=== PATIENT | male | born 1950 ===

== ENCOUNTER 2021-09-15 13:25 | Inpatient (IN) | payer MEDICARE, OTHER ==
[~2021-09-15 13:25] MED LIST: Aspirin Chewable 81 MG TAB ONE; Iopamidol 370 76% 100 ML VIAL ONE; Iopamidol 370 76% 50 ML VIAL FS ONE; Sodium Chloride 0.9% 1,000 ML BAG ONE
[2021-09-15 14:05] LABS: Mean Corpuscular HGB CONC 34.9 g/dL (32.0-36.0); Mean Corpuscular Hemoglobin 31.9 pg (27.0-31.0); Mean Corpuscular Volume 91.4 fL (78.0-98.0); RBC Distribution Width 12.4 % (11.5-14.5); Red Blood Cell (RBC) Count 4.38 mill/uL (4.70-6.10)
[2021-09-15 14:08] LABS: Prothrombin Time 13.1 sec (12.0-14.7)
[2021-09-15 14:09] LABS: PTT 29.6 sec (22.9-36.1)
[2021-09-15 14:15] LABS: ALT (SGPT) 67 U/L (8-55); AST (SGOT) 68 U/L (5-34); Albumin 3.4 g/dL (3.4-4.8); Alkaline Phosphatase 59 U/L (40-110); Anion Gap 20 mmol/L (10-20); BUN (Urea Nitrogen) 23 mg/dL (8.4-25.7); Bilirubin, Total 0.2 mg/dL (0.2-1.2); Calc. Creatinine Clearance 0 mL/min (70-130); Calcium 8.8 mg/dL (7.8-10.44); Carbon Dioxide 16 mmol/L (23-31); Chloride 103 mmol/L (98-107); Globulin 2.6 g/dL (2.4-3.5); Glucose 458 mg/dL (80-115); Potassium 4.2 mmol/L (3.5-5.1); Sodium 135 mmol/L (136-145)
[2021-09-15 14:21] LABS: Eosinophils 10 % (0-10); Lymphocytes 31 % (21-51); Monocytes 8 % (0-10); Neutrophil 46 % (42-75); Reactive Lymphocytes 5 % (0-10)
[2021-09-15 14:22] LABS: RBC Morphology Normal
[2021-09-15 14:45] LABS: SARS-CoV-2 NAA Rapid Test Not Detected (NotDetected)
[2021-09-15] MEDS ORDERED: Nitroglycerin 0.4 MG TAB (25 Tab Bottle) SL PRN ×2 (14:59→15:03)
[2021-09-15] MEDS ORDERED: Heparin 10,000 UNITS/ 10 ML VIAL SLOW IVP SCH (15:00)
[2021-09-15] MEDS ORDERED: Aspirin Chewable 81 MG TAB PO SCH (15:00)
[2021-09-15] MEDS ORDERED: Heparin 25,000 units/D5W 500 ML IVPB SCH (15:00)
[2021-09-15] MEDS ORDERED: Sodium Chloride 0.9% 200 ML IV PRN (15:03)
[2021-09-15] MEDS ORDERED: Acetaminophen/Codeine 30-300mg Tablet PO PRN ×2 (15:03)
[2021-09-15 15:24] LABS: Platelet Count 193 thou/uL (130-400)
[2021-09-15 15:26] LABS: MDiff Complete? YES
[2021-09-15 16:21] LABS: Troponin I 0.325 ng/mL (< 0.028)
[2021-09-15] MEDS: Carvedilol 3.125 MG TAB PO SCH (16:59)
[2021-09-15] MEDS ORDERED: Dextrose 50% Abboject 50 ML SYRINGE SLOW IVP PRN (17:01)
[2021-09-15] MEDS ORDERED: HumaLOG 300 UNITS/3 ML VIAL SC PRN ×2 (17:01)
[2021-09-15] MEDS ORDERED: Dextrose 5% in Water 1,000 ML IV PRN (17:01)
[2021-09-15] MEDS ORDERED: Morphine 2 MG/ML VIAL SLOW IVP PRN (17:34)
[2021-09-15 17:58] LABS: Hemoglobin A1c 8.5 % (4.0-6.0); Lactic Acid 1.1 mmol/L (0.5-2.2)
[2021-09-15] MEDS ORDERED: Communication Order-Pharmacy FS SCH (18:43)
[2021-09-15 19:14] LABS: Troponin I 1.572 ng/mL (< 0.028)
[2021-09-15] MEDS ORDERED: Ondansetron PF 4 MG/2 ML Vial IVP PRN (19:39)
[2021-09-15] MEDS ORDERED: Lactated Ringer's 1,000 ML IV SCH (19:45)
[2021-09-15] MEDS ORDERED: Metoprolol Tartrate 25 MG TAB PO SCH (21:00)
[2021-09-16] MEDS ORDERED: Morphine 4 MG/ML VIAL SLOW IVP PRN ×3 (01:35→11:52)
[2021-09-16] MEDS ORDERED: Norepinephrine 8 MG/0.9% NS 250 ML IVPB PRN ×2 (01:35→11:52)
[2021-09-16] MEDS ORDERED: Sodium Chloride 0.9% 250 ML IVPB SCH (02:15)
[2021-09-16 04:40] LABS: Anion Gap 15 mmol/L (10-20); BUN (Urea Nitrogen) 28 mg/dL (8.4-25.7); Calc. Creatinine Clearance 79 mL/min (70-130); Calcium 8.5 mg/dL (7.8-10.44); Carbon Dioxide 20 mmol/L (23-31); Cardiac Risk 2.6 (Less than 4.5); Chloride 105 mmol/L (98-107); Cholesterol 118 mg/dl (< 200 Desired); Glucose 297 mg/dL (80-115); HDL Cholesterol 46 mg/dL (>60 Neg Risk); LDL Cholesterol, Calculated 46 mg/dL; Magnesium 1.5 mg/dL (1.6-2.6); Potassium 4.5 mmol/L (3.5-5.1); Sodium 135 mmol/L (136-145); Triglycerides 128 mg/dL (Less than 150)
[2021-09-16 04:47] LABS: Troponin I 1.597 ng/mL (< 0.028)
[2021-09-16] MEDS: Carvedilol 3.125 MG TAB PO SCH (05:58)
[2021-09-16] MEDS ORDERED: CEFAZOLIN 2 GM, Admixture Fee 1 EACH in Sodium Chloride 0.9% 100 ML IVPB SCH (07:00)
[2021-09-16] MEDS ORDERED: Dexamethasone 4 mg/ml Vial ONE (07:20)
[2021-09-16] MEDS ORDERED: Bupivacaine PF 0.5% 30 ML VIAL ONE (07:20)
[2021-09-16] MEDS ORDERED: Albumin 5% 500 ML ONE (07:20)
[2021-09-16] MEDS ORDERED: EPINEPHrine 1 MG/ML AMP ONE (07:20)
[2021-09-16] MEDS ORDERED: Midazolam HCl 5 mg/5 ml Vial ONE (07:57)
[2021-09-16] MEDS ORDERED: Dexmedetomidine 200 MCG/2 ML VIAL ONE (07:57)
[2021-09-16] MEDS ORDERED: Fentanyl 250 MCG/5 ML VIAL ONE (07:57)
[2021-09-16] MEDS ORDERED: Cardioplegic Soln 1,000 ML BAG ONE (08:19)
[2021-09-16] MEDS ORDERED: Norepinephrine 4 MG/4 ML VIAL ONE (08:19)
[2021-09-16] MEDS ORDERED: Dexamethasone 20 MG/5 ML VIAL ONE (08:19)
[2021-09-16] MEDS ORDERED: Mannitol 12.5 GM/50 ML ONE (08:19)
[2021-09-16] MEDS ORDERED: Heparin 5,000 UNITS/ML VIAL ONE (08:19)
[2021-09-16] MEDS ORDERED: Calcium Chloride 1 GM/10 ML Abboject SYRINGE ONE (08:19)
[2021-09-16] MEDS ORDERED: PROPOFOL 200 MG/20 ML VIAL ONE (08:19)
[2021-09-16] MEDS ORDERED: Lidocaine 2% PF 100 mg/5 ml Syringe ONE (08:19)
[2021-09-16] MEDS ORDERED: Protamine Sulfate 250 MG/25 ML VIAL ONE (08:19)
[2021-09-16] MEDS ORDERED: Ondansetron PF 4 MG/2 ML Vial ONE (08:19)
[2021-09-16] MEDS ORDERED: Heparin 30,000 units/30 ml VIAL ONE (08:19)
[2021-09-16] MEDS ORDERED: Magnesium Sulfate 1 GM/2 ML VIAL ONE (08:19)
[2021-09-16] MEDS ORDERED: Aminocaproic Acid 5 GM/20 ML VIAL ONE (08:19)
[2021-09-16] MEDS ORDERED: Vecuronium 10 MG VIAL ONE (08:19)
[2021-09-16] MEDS ORDERED: Thrombin 5000 UNITS/5 ML VIAL ONE (08:19)
[2021-09-16] MEDS ORDERED: Potassium Chloride 60 MEQ/30 ML VIAL ONE (08:19)
[2021-09-16] MEDS ORDERED: Sodium Bicarb 50 MEQ/50 ML Abboject 8.4% SYRINGE ONE (08:19)
[2021-09-16] MEDS ORDERED: Lidocaine 1% PF 5 ML VIAL ONE (08:19)
[2021-09-16] MEDS ORDERED: Nitroglycerin 50 MG/250 ML BOT ONE (08:19)
[2021-09-16] MEDS ORDERED: Glycopyrrolate 0.2 MG/ML 5 ML SYRINGE ONE (08:19)
[2021-09-16] MEDS ORDERED: Papaverine 60 MG/2 ML VIAL ONE (08:19)
[2021-09-16] MEDS ORDERED: Lantus 1000 UNITS/10 ML VIAL SC SCH (09:00)
[2021-09-16] MEDS ORDERED: Insulin Regular 300 UNITS/3 ML VIAL ONE ×2 (09:00→09:01)
[2021-09-16] MEDS ORDERED: Milrinone 10 MG/10 ML VIAL ONE (09:00)
[2021-09-16] MEDS ORDERED: PHENYLEPHRINE-NS 100 MCG/ML 10 ML SYRINGE ONE ×2 (10:22→10:42)
[2021-09-16 10:49] LABS: Actual Bicarbonate (HCO3a) 22.2 mEq/L (22-28); Actual Bicarbonate (HCO3a) 25.6 mEq/L (22-28); Base Excess (BEa) -0.8 mEq/L (-2.0 to +3.0); Base Excess (BEa) -4.7 mEq/L (-2.0 to +3.0); CO2 Tension 49.2 mmHg (35.0-45.0); CO2 Tension 52.7 mmHg (35.0-45.0); Calcium, Ionized (arterial) 0.87 mmol/L (1.12-1.30); Calcium, Ionized (arterial) 1.06 mmol/L (1.12-1.30); Carboxyhemoglobin (COHb) 0.3 gm% (0.0-3.0); Carboxyhemoglobin (COHb) 0.9 gm% (0.0-3.0); Hemoglobin (Hb) 10.4 g/dL (14.0-18.0); Hemoglobin (Hb) 7.7 g/dL (14.0-18.0); O2 Tension (PaO2), arterial 249.5 mmHg (> 80.0); O2 Tension (PaO2), arterial 286.4 mmHg (> 80.0); Potassium - ABG Lab 3.52 mmol/L (3.70-5.30); Potassium - ABG Lab 3.74 mmol/L (3.70-5.30); Puncture Site Arterial Line; pH, Arterial 7.27 (7.35-7.45); pH, Arterial 7.31 (7.35-7.45)
[2021-09-16 10:51] LABS: Puncture Site Arterial Line
[2021-09-16] MEDS ORDERED: Nitroglycerin 50 MG/250 ML BOT 250 ML IVPB PRN (11:52)
[2021-09-16] MEDS ORDERED: Promethazine HCl 25 MG/ML VIAL IM PRN (11:52)
[2021-09-16] MEDS ORDERED: Post-Op Insulin Drip Protocol IVPB ONE (11:52)
[2021-09-16] MEDS ORDERED: hydrALAZINE 20 MG/ML VIAL SLOW IVP PRN (11:52)
[2021-09-16] MEDS ORDERED: Bisacodyl 5 MG TAB PO PRN (11:52)
[2021-09-16] MEDS ORDERED: Hetastarch 6% 500 ML 500 ML IVPB PRN (11:52)
[2021-09-16] MEDS ORDERED: Fentanyl 100 MCG/2 ML VIAL SLOW IVP PRN ×2 (11:52)
[2021-09-16] MEDS ORDERED: Mag-Al 1200 mg/1200 mg/30 ML UDCUP PO PRN (11:52)
[2021-09-16] MEDS ORDERED: Bisacodyl 10 MG SUPP PR PRN (11:52)
[2021-09-16] MEDS ORDERED: Magnesium 2 GM/50 ML 2 GM in Premix Bag 1 BAG IVPB SCH (12:00)
[2021-09-16] MEDS ORDERED: Dextrose 50% Abboject 50 ML SYRINGE SLOW IVP PRN (12:15)
[2021-09-16] MEDS ORDERED: HUMULIN R 100 UNITS in Sodium Chloride 0.9% 100 ML IVPB SCH (12:15)
[2021-09-16] MEDS ORDERED: Dextrose 5% in Water 1,000 ML IV PRN (12:15)
[2021-09-16] MEDS ORDERED: Lantus 1000 UNITS/10 ML VIAL SC PRN (12:15)
[2021-09-16] MEDS: Insulin Regular 300 UNITS/3 ML VIAL SC PRN ×3 (12:22→20:02)
[2021-09-16] MEDS: Ketorolac Tromethamine 30 MG/ML VIAL IVP SCH ×2 (12:22→17:08)
[2021-09-16 12:25] LABS: #Basophils 0.1 thou/uL (0.0-0.2); #Eosinphils 0.3 thou/uL (0.0-0.7); #Lymphocytes 1.9 thou/uL (1.20-3.40); #Monocytes 2.4 thou/uL (0.11-0.59); #Neutrophils 14.5 thou/uL (1.40-6.50); %Basophils 0.3 % (0.0-1.0); %Eosinophils 1.5 % (0.0-10.0); %Lymphocytes 9.8 % (21.0-51.0); %Monocytes 12.7 % (0.0-10.0); %Neutrophils 75.7 % (42.0-75.0); Hemoglobin 9.9 g/dL (14.0-18.0); Mean Corpuscular HGB CONC 33.4 g/dL (32.0-36.0); Mean Corpuscular Hemoglobin 30.4 pg (27.0-31.0); Mean Corpuscular Volume 90.9 fL (78.0-98.0); Mean Platelet Volume 10.5 fL (7.4-10.4); Platelet Count 84 thou/uL (130-400); RBC Distribution Width 12.4 % (11.5-14.5); Red Blood Cell (RBC) Count 3.26 mill/uL (4.70-6.10); White Blood Cell (WBC) Count 19.1 thou/uL (4.8-10.8)
[2021-09-16 12:26] LABS: Actual Bicarbonate (HCO3a) 20.3 mEq/L (22-28); Base Excess (BEa) -5.5 mEq/L (-2.0 to +3.0); CO2 Tension 40.7 mmHg (35.0-45.0); Hemoglobin (Hb) 10.2 g/dL (14.0-18.0); O2 Tension (PaO2), arterial 70.9 mmHg (> 80.0); Potassium - ABG Lab 3.73 mmol/L (3.70-5.30); pH, Arterial 7.32 (7.35-7.45)
[2021-09-16 12:37] LABS: INR-International Normal Ratio 1.3; PTT 38.9 sec (22.9-36.1)
[2021-09-16 12:38] LABS: Puncture Site Arterial Line
[2021-09-16] MEDS: D5 1/2 NS w/20 mEq KCL 1,000 ML IV SCH (12:40)
[2021-09-16 12:46] LABS: ALV-art Gradient 163.425 mmHg (0-20)
[2021-09-16 12:50] LABS: Anion Gap 15 mmol/L (10-20); BUN (Urea Nitrogen) 24 mg/dL (8.4-25.7); Calc. Creatinine Clearance 84 mL/min (70-130); Calcium 7.8 mg/dL (7.8-10.44); Carbon Dioxide 19 mmol/L (23-31); Chloride 110 mmol/L (98-107); Glucose 135 mg/dL (80-115); Potassium 3.8 mmol/L (3.5-5.1); Sodium 140 mmol/L (136-145)
[2021-09-16] MEDS: Potassium Chloride 20 MEQ/100 ML PREMIX BAG IVPB PRN (12:57)
[2021-09-16] MEDS: CEFAZOLIN 2 GM, IV Admixture Fee-Chemo 1 UNITS in Sodium Chloride 0.9% 100 ML IVPB SCH ×2 (14:00→22:35)
[2021-09-16] MEDS ORDERED: Sodium Chloride 0.9% 500 ML IV SCH (17:00)
[2021-09-16] MEDS ORDERED: Sodium Chloride 0.9% 500 ML IV PRN (17:00)
[2021-09-16 18:03] LABS: Hemoglobin 8.1 g/dL (14.0-18.0)
[2021-09-16 18:16] LABS: Potassium 4.3 mmol/L (3.5-5.1)
[2021-09-16] MEDS ORDERED: Amiodarone 150 MG, Admixture Fee 1 EACH in Dextrose 5% in Water 100 ML IVPB SCH (18:30)
[2021-09-16] MEDS: Amiodarone 450 MG, Admixture Fee 1 EACH in Dextrose 5% in Water 250 ML IVPB SCH (18:38)
[2021-09-16] MEDS: Famotidine/PF 20 mg/2ml Vial SLOW IVP SCH (20:01)
[2021-09-16] MEDS: Acetaminophen 325 MG TAB PO PRN (20:06)
[2021-09-16] MEDS ORDERED: Sterile Water 10 ML ONE (20:17)
[2021-09-17] MEDS: Ketorolac Tromethamine 30 MG/ML VIAL IVP SCH ×4 (00:04→17:08)
[2021-09-17] MEDS: Insulin Regular 300 UNITS/3 ML VIAL SC PRN ×5 (00:05→16:00)
[2021-09-17] MEDS: Amiodarone 450 MG, Admixture Fee 1 EACH in Dextrose 5% in Water 250 ML IVPB SCH ×2 (03:38→18:35)
[2021-09-17 04:36] LABS: Anion Gap 11 mmol/L (10-20); BUN (Urea Nitrogen) 26 mg/dL (8.4-25.7); Calc. Creatinine Clearance 71 mL/min (70-130); Carbon Dioxide 21 mmol/L (23-31); Chloride 111 mmol/L (98-107); Glucose 234 mg/dL (80-115); Potassium 4.4 mmol/L (3.5-5.1); Sodium 139 mmol/L (136-145)
[2021-09-17 05:28] LABS: Band 17 % (5-11); Lymphocytes 24 % (21-51); MDiff Complete? YES; Mean Corpuscular HGB CONC 34.6 g/dL (32.0-36.0); Mean Corpuscular Hemoglobin 31.1 pg (27.0-31.0); Mean Corpuscular Volume 89.7 fL (78.0-98.0); Mean Platelet Volume 10.9 fL (7.4-10.4); Monocytes 2 % (0-10); Neutrophil 57 % (42-75); Platelet Count 55 thou/uL (130-400); Platelet Morphology Comment Appears Decreased; RBC Distribution Width 12.7 % (11.5-14.5); Red Blood Cell (RBC) Count 2.56 mill/uL (4.70-6.10); White Blood Cell (WBC) Count 10.7 thou/uL (4.8-10.8)
[2021-09-17] MEDS: CEFAZOLIN 2 GM, IV Admixture Fee-Chemo 1 UNITS in Sodium Chloride 0.9% 100 ML IVPB SCH (05:48)
[2021-09-17] MEDS ORDERED: Furosemide 40 MG/4 ML VIAL SLOW IVP SCH (06:45)
[2021-09-17] MEDS: Aspirin 325 MG TAB PO SCH (08:00)
[2021-09-17] MEDS: Famotidine/PF 20 mg/2ml Vial SLOW IVP SCH ×2 (08:00→20:39)
[2021-09-17] MEDS: Magnesium 2 GM/50 ML 2 GM in Premix Bag 1 BAG IVPB SCH (08:01)
[2021-09-17] MEDS ORDERED: Lantus 1000 UNITS/10 ML VIAL SC SCH (09:15)
[2021-09-17] MEDS ORDERED: Digoxin 0.5 MG/2 ML AMP SLOW IVP SCH (09:45)
[2021-09-17] MEDS: HYDROcodone/Acetaminophen 5/325 mg Tablet PO PRN ×3 (10:02→20:39)
[2021-09-17] MEDS: HumaLOG 300 UNITS/3 ML VIAL SC SCH ×2 (12:28→17:14)
[2021-09-17] MEDS: D5 1/2 NS w/20 mEq KCL 1,000 ML IV SCH (12:28)
[2021-09-18] MEDS: Ketorolac Tromethamine 30 MG/ML VIAL IVP SCH ×5 (00:20→23:33)
[2021-09-18 04:32] LABS: Anion Gap 9 mmol/L (10-20); BUN (Urea Nitrogen) 27 mg/dL (8.4-25.7); Calc. Creatinine Clearance 81 mL/min (70-130); Calcium 6.9 mg/dL (7.8-10.44); Carbon Dioxide 24 mmol/L (23-31); Chloride 110 mmol/L (98-107); Glucose 144 mg/dL (80-115); Potassium 3.8 mmol/L (3.5-5.1); Sodium 139 mmol/L (136-145)
[2021-09-18] MEDS: Potassium Chloride 20 MEQ/100 ML PREMIX BAG IVPB PRN (04:46)
[2021-09-18 05:03] LABS: Hemoglobin 9.1 g/dL (14.0-18.0); Mean Corpuscular HGB CONC 33.8 g/dL (32.0-36.0); Mean Corpuscular Hemoglobin 30.7 pg (27.0-31.0); Mean Corpuscular Volume 90.7 fL (78.0-98.0); RBC Distribution Width 14.1 % (11.5-14.5); Red Blood Cell (RBC) Count 2.96 mill/uL (4.70-6.10); White Blood Cell (WBC) Count 7.4 thou/uL (4.8-10.8)
[2021-09-18 06:04] LABS: #Eosinphils 0.3 thou/uL (0.0-0.7); #Lymphocytes 1.6 thou/uL (1.20-3.40); #Monocytes 1.1 thou/uL (0.11-0.59); #Neutrophils 4.4 thou/uL (1.40-6.50); %Basophils 0.3 % (0.0-1.0); %Eosinophils 4.4 % (0.0-10.0); %Lymphocytes 21.1 % (21.0-51.0); %Monocytes 14.5 % (0.0-10.0); %Neutrophils 59.7 % (42.0-75.0); MDiff Complete? YES; Mean Platelet Volume 8.3 fL (7.4-10.4); Platelet Clumps SLIGHT; Platelet Count 78 thou/uL (130-400); Platelet Morphology Comment Appears Decreased
[2021-09-18] MEDS: Magnesium 2 GM/50 ML 2 GM in Premix Bag 1 BAG IVPB SCH (07:43)
[2021-09-18] MEDS: Famotidine/PF 20 mg/2ml Vial SLOW IVP SCH (07:45)
[2021-09-18] MEDS: HumaLOG 300 UNITS/3 ML VIAL SC SCH ×3 (07:46→16:13)
[2021-09-18] MEDS: HYDROcodone/Acetaminophen 5/325 mg Tablet PO PRN (07:51)
[2021-09-18] MEDS: Aspirin 325 MG TAB PO SCH (07:56)
[2021-09-18] MEDS ORDERED: Mineral Oil ENEMA PR PRN (08:10)
[2021-09-18] MEDS ORDERED: Milk Of Magnesia 30 ML UDCUP PO PRN (08:10)
[2021-09-18] MEDS ORDERED: Nitroglycerin 0.4 MG TAB (25 Tab Bottle) SL PRN (08:10)
[2021-09-18] MEDS ORDERED: Bisacodyl 10 MG SUPP PR PRN (08:10)
[2021-09-18] MEDS ORDERED: traMADol HCl 50 MG TAB PO PRN ×2 (08:10)
[2021-09-18] MEDS ORDERED: Potassium Chloride 10 MEQ TAB PO SCH (08:30)
[2021-09-18] MEDS ORDERED: Lantus 1000 UNITS/10 ML VIAL SC SCH (09:00)
[2021-09-18] MEDS: Furosemide 40 MG TAB PO SCH ×2 (10:02→11:34)
[2021-09-18] MEDS: Amiodarone 450 MG, Admixture Fee 1 EACH in Dextrose 5% in Water 250 ML IVPB SCH (10:06)
[2021-09-18] MEDS: Insulin Regular 300 UNITS/3 ML VIAL SC PRN ×2 (11:35→20:56)
[2021-09-18] MEDS: Amiodarone 200 MG TAB PO SCH ×2 (16:13→20:55)
[2021-09-19] MEDS: Ketorolac Tromethamine 30 MG/ML VIAL IVP SCH ×2 (05:30→11:30)
[2021-09-19] MEDS: Insulin Regular 300 UNITS/3 ML VIAL SC PRN ×3 (05:35→17:13)
[2021-09-19] MEDS ORDERED: Potassium Chloride 10 MEQ TAB PO SCH (08:00)
[2021-09-19] MEDS ORDERED: Lantus 1000 UNITS/10 ML VIAL SC SCH (09:00)
[2021-09-19] MEDS: HumaLOG 300 UNITS/3 ML VIAL SC SCH ×3 (09:04→17:12)
[2021-09-19] MEDS: Potassium Chloride 10 MEQ TAB PO SCH ×2 (09:05→17:13)
[2021-09-19] MEDS: Carvedilol 3.125 MG TAB PO SCH ×2 (09:05→17:13)
[2021-09-19] MEDS: Aspirin 325 MG TAB PO SCH (09:05)
[2021-09-19] MEDS: Amiodarone 200 MG TAB PO SCH ×3 (09:05→21:14)
[2021-09-19] MEDS: Furosemide 40 MG TAB PO SCH ×2 (09:09→14:49)
[2021-09-19] MEDS ORDERED: traMADol HCl 50 MG TAB PO PRN ×2 (17:16)
[2021-09-20] MEDS ORDERED: Metolazone 5 MG TAB PO SCH (06:00)
[2021-09-20 07:47] LABS: Anion Gap 12 mmol/L (10-20); BUN (Urea Nitrogen) 30 mg/dL (8.4-25.7); Calc. Creatinine Clearance 72 mL/min (70-130); Calcium 7.2 mg/dL (7.8-10.44); Carbon Dioxide 21 mmol/L (23-31); Chloride 107 mmol/L (98-107); Glucose 150 mg/dL (80-115); Potassium 4.4 mmol/L (3.5-5.1); Sodium 136 mmol/L (136-145)
[2021-09-20] MEDS: Lisinopril 5 MG TAB PO SCH (08:40)
[2021-09-20] MEDS: Potassium Chloride 10 MEQ TAB PO SCH ×2 (08:40→17:17)
[2021-09-20] MEDS: Amiodarone 200 MG TAB PO SCH ×3 (08:40→21:16)
[2021-09-20] MEDS: Carvedilol 3.125 MG TAB PO SCH ×2 (08:41→17:17)
[2021-09-20] MEDS: Aspirin 325 MG TAB PO SCH (08:42)
[2021-09-20] MEDS: Lantus 1000 UNITS/10 ML VIAL SC SCH (08:42)
[2021-09-20] MEDS: Furosemide 40 MG TAB PO SCH ×2 (08:42→13:43)
[2021-09-20] MEDS: HumaLOG 300 UNITS/3 ML VIAL SC SCH ×3 (08:43→17:18)
[2021-09-20] MEDS: Insulin Regular 300 UNITS/3 ML VIAL SC PRN ×2 (12:06→17:18)
[2021-09-20] MEDS: traMADol HCl 50 MG TAB PO PRN (15:08)
[2021-09-21] MEDS: Acetaminophen 325 MG TAB PO PRN (04:38)
[2021-09-21] MEDS ORDERED: Metolazone 5 MG TAB PO SCH (06:00)
[2021-09-21] MEDS: Furosemide 40 MG TAB PO SCH ×2 (08:13→17:34)
[2021-09-21] MEDS: Aspirin 325 MG TAB PO SCH (08:14)
[2021-09-21] MEDS: Potassium Chloride 10 MEQ TAB PO SCH ×2 (08:14→16:48)
[2021-09-21] MEDS: Lisinopril 5 MG TAB PO SCH (08:14)
[2021-09-21] MEDS: HumaLOG 300 UNITS/3 ML VIAL SC SCH ×3 (08:15→16:49)
[2021-09-21] MEDS: Amiodarone 200 MG TAB PO SCH ×3 (08:15→20:47)
[2021-09-21] MEDS: Carvedilol 3.125 MG TAB PO SCH ×2 (08:15→18:12)
[2021-09-21] MEDS: Lantus 1000 UNITS/10 ML VIAL SC SCH (08:16)
[2021-09-21 10:35] LABS: Anion Gap 12 mmol/L (10-20); BUN (Urea Nitrogen) 28 mg/dL (8.4-25.7); Calc. Creatinine Clearance 62 mL/min (70-130); Calcium 7.3 mg/dL (7.8-10.44); Carbon Dioxide 23 mmol/L (23-31); Chloride 103 mmol/L (98-107); Glucose 179 mg/dL (80-115); Potassium 3.8 mmol/L (3.5-5.1); Sodium 134 mmol/L (136-145)
[2021-09-21] MEDS: traMADol HCl 50 MG TAB PO PRN (12:13)
[2021-09-21] MEDS: Insulin Regular 300 UNITS/3 ML VIAL SC PRN (20:47)
[2021-09-22] MEDS: Acetaminophen 325 MG TAB PO PRN ×2 (03:40→18:38)
[2021-09-22] MEDS ORDERED: APALUTAMIDE 60 MG PO SCH (09:00)
[2021-09-22] MEDS: Sodium Chloride 0.65% Nasal 44 ML BOT EA NARE SCH ×3 (09:13→21:48)
[2021-09-22] MEDS: guaiFENesin/DM ER PO SCH ×2 (09:14→21:46)
[2021-09-22] MEDS: Furosemide 40 MG TAB PO SCH ×2 (09:14→14:27)
[2021-09-22] MEDS: Amiodarone 200 MG TAB PO SCH ×3 (09:14→21:46)
[2021-09-22] MEDS: Lisinopril 5 MG TAB PO SCH (09:14)
[2021-09-22] MEDS: Carvedilol 3.125 MG TAB PO SCH ×2 (09:14→16:55)
[2021-09-22] MEDS: Potassium Chloride 10 MEQ TAB PO SCH ×2 (09:14→17:28)
[2021-09-22] MEDS: Aspirin 325 MG TAB PO SCH (09:14)
[2021-09-22] MEDS: Lantus 1000 UNITS/10 ML VIAL SC SCH (09:15)
[2021-09-22] MEDS: HumaLOG 300 UNITS/3 ML VIAL SC SCH ×3 (09:16→17:28)
[2021-09-22] MEDS: Apalutamide [Erleada] 60 MG Tablet PO SCH (09:17)
[2021-09-22] MEDS: Insulin Regular 300 UNITS/3 ML VIAL SC PRN (21:46)
[2021-09-23] MEDS: Guaifenesin DM 100-10/5 ML UDCUP PO PRN (00:08)
[2021-09-23] MEDS: traMADol HCl 50 MG TAB PO PRN ×2 (00:26→20:52)
[2021-09-23 05:41] LABS: Anion Gap 13 mmol/L (10-20); BUN (Urea Nitrogen) 19 mg/dL (8.4-25.7); Calc. Creatinine Clearance 72 mL/min (70-130); Calcium 7.2 mg/dL (7.8-10.44); Carbon Dioxide 23 mmol/L (23-31); Chloride 102 mmol/L (98-107); Glucose 109 mg/dL (80-115); Potassium 4.1 mmol/L (3.5-5.1); Sodium 134 mmol/L (136-145)
[2021-09-23] MEDS ORDERED: Dextrose 5% in Water 1,000 ML IV PRN (06:59)
[2021-09-23] MEDS ORDERED: Lisinopril 5 MG TAB PO SCH (08:27)
[2021-09-23] MEDS: guaiFENesin/DM ER PO SCH ×2 (09:19→20:54)
[2021-09-23] MEDS: Apalutamide [Erleada] 60 MG Tablet PO SCH (09:19)
[2021-09-23] MEDS: Potassium Chloride 10 MEQ TAB PO SCH ×2 (09:19→14:58)
[2021-09-23] MEDS: Aspirin 325 MG TAB PO SCH (09:19)
[2021-09-23] MEDS: Amiodarone 200 MG TAB PO SCH ×3 (09:20→22:25)
[2021-09-23] MEDS: Carvedilol 3.125 MG TAB PO SCH ×2 (09:20→14:57)
[2021-09-23] MEDS: Lisinopril 2.5 MG TAB PO SCH (09:20)
[2021-09-23] MEDS: Furosemide 40 MG TAB PO SCH ×2 (09:20→14:57)
[2021-09-23] MEDS: Lantus 1000 UNITS/10 ML VIAL SC SCH (09:20)
[2021-09-23] MEDS: Sodium Chloride 0.65% Nasal 44 ML BOT EA NARE SCH ×3 (09:21→22:25)
[2021-09-23] MEDS ORDERED: Carvedilol 3.125 MG TAB PO SCH ×2 (09:22→09:45)
[2021-09-23] MEDS: Acetaminophen 325 MG TAB PO PRN (09:26)
[2021-09-23 10:46] LABS: ALT (SGPT) 17 U/L (8-55); AST (SGOT) 22 U/L (5-34); Albumin 3.1 g/dL (3.4-4.8); Alkaline Phosphatase 51 U/L (40-110); Bilirubin, Direct 0.3 mg/dL (0.1-0.3); Bilirubin, Total 0.5 mg/dL (0.2-1.2); Protein, Total 5.6 g/dL (5.8-8.1)
[2021-09-23] MEDS: HumaLOG 300 UNITS/3 ML VIAL SC PRN ×2 (11:41→17:25)
[2021-09-23] MEDS ORDERED: Sodium Chloride 0.9% 500 ML IV SCH (12:45)
[2021-09-23 21:03] LABS: SARS-CoV-2 PCR by NAA DETECTED (NotDetected)
[2021-09-24] MEDS: Amiodarone 200 MG TAB PO SCH ×3 (08:36→20:58)
[2021-09-24] MEDS: Lisinopril 2.5 MG TAB PO SCH (08:36)
[2021-09-24] MEDS: Potassium Chloride 10 MEQ TAB PO SCH ×2 (08:36→17:03)
[2021-09-24] MEDS: Aspirin 325 MG TAB PO SCH (08:37)
[2021-09-24] MEDS: guaiFENesin/DM ER PO SCH ×2 (08:37→20:58)
[2021-09-24] MEDS: Carvedilol 3.125 MG TAB PO SCH ×2 (08:37→17:02)
[2021-09-24] MEDS: Furosemide 40 MG TAB PO SCH ×2 (08:37→14:27)
[2021-09-24] MEDS: Lantus 1000 UNITS/10 ML VIAL SC SCH (08:38)
[2021-09-24] MEDS: Apalutamide [Erleada] 60 MG Tablet PO SCH (08:41)
[2021-09-24] MEDS: Sodium Chloride 0.65% Nasal 44 ML BOT EA NARE SCH ×4 (09:00→21:23)
[2021-09-25] MEDS: Potassium Chloride 10 MEQ TAB PO SCH ×2 (08:13→17:43)
[2021-09-25] MEDS: Carvedilol 3.125 MG TAB PO SCH ×2 (08:13→17:42)
[2021-09-25] MEDS: Furosemide 40 MG TAB PO SCH (08:14)
[2021-09-25] MEDS: Aspirin 325 MG TAB PO SCH (08:14)
[2021-09-25] MEDS: Lisinopril 2.5 MG TAB PO SCH (08:14)
[2021-09-25] MEDS: Amiodarone 200 MG TAB PO SCH ×2 (08:14→16:00)
[2021-09-25] MEDS: Lantus 1000 UNITS/10 ML VIAL SC SCH (08:23)
[2021-09-25] MEDS: Apalutamide [Erleada] 60 MG Tablet PO SCH (08:23)
[2021-09-25] MEDS: guaiFENesin/DM ER PO SCH ×2 (08:23→21:02)
[2021-09-25] MEDS: Sodium Chloride 0.65% Nasal 44 ML BOT EA NARE SCH ×3 (09:28→21:08)
[2021-09-25] MEDS: Sodium Chloride 0.9% 1,000 ML IV SCH ×2 (12:45→23:00)
[2021-09-25] MEDS ORDERED: Digoxin 0.5 MG/2 ML AMP SLOW IVP SCH ×2 (15:30→21:00)
[2021-09-25] MEDS ORDERED: Sodium Chloride 0.9% 250 ML 250 ML IVPB SCH (16:45)
[2021-09-25] MEDS ORDERED: Sodium Chloride 0.9% 250 ML IV SCH (21:00)
[2021-09-25] MEDS: Acetaminophen 325 MG TAB PO PRN (21:03)
[2021-09-25 22:08] LABS: Anion Gap 16 mmol/L (10-20); BUN (Urea Nitrogen) 18 mg/dL (8.4-25.7); Calc. Creatinine Clearance 66 mL/min (70-130); Calcium 7.1 mg/dL (7.8-10.44); Carbon Dioxide 18 mmol/L (23-31); Chloride 103 mmol/L (98-107); Glucose 143 mg/dL (80-115); Potassium 4.3 mmol/L (3.5-5.1); Sodium 133 mmol/L (136-145)
[2021-09-26] MEDS: traMADol HCl 50 MG TAB PO PRN ×2 (04:28→18:36)
[2021-09-26 07:51] LABS: Lymphocytes 7 % (21-51)
[2021-09-26 07:53] LABS: Band 4 % (5-11); Hemoglobin 10.9 g/dL (14.0-18.0); MDiff Complete? YES; Mean Corpuscular HGB CONC 34.1 g/dL (32.0-36.0); Mean Corpuscular Hemoglobin 30.3 pg (27.0-31.0); Mean Platelet Volume 11.6 fL (7.4-10.4); Monocytes 4 % (0-10); Neutrophil 85 % (42-75); Platelet Clumps MARKED; Platelet Morphology Comment PLT clumps seen-ADEQ; Polychromasia SLIGHT = 2-3 cells (100X) (0-2/hpf); RBC Distribution Width 13.7 % (11.5-14.5); Red Blood Cell (RBC) Count 3.58 mill/uL (4.70-6.10); White Blood Cell (WBC) Count 6.6 thou/uL (4.8-10.8)
[2021-09-26] MEDS: Amiodarone 200 MG TAB PO SCH ×4 (08:36→20:09)
[2021-09-26] MEDS: Lantus 1000 UNITS/10 ML VIAL SC SCH (08:37)
[2021-09-26] MEDS: Potassium Chloride 10 MEQ TAB PO SCH ×2 (08:37→17:03)
[2021-09-26] MEDS: Aspirin 325 MG TAB PO SCH (08:37)
[2021-09-26] MEDS: Carvedilol 3.125 MG TAB PO SCH ×2 (08:37→09:22)
[2021-09-26] MEDS: Lisinopril 2.5 MG TAB PO SCH ×2 (08:38→09:23)
[2021-09-26] MEDS: guaiFENesin/DM ER PO SCH ×2 (09:21→20:10)
[2021-09-26] MEDS: Apalutamide [Erleada] 60 MG Tablet PO SCH (09:22)
[2021-09-26] MEDS: Sodium Chloride 0.65% Nasal 44 ML BOT EA NARE SCH ×3 (09:22→21:54)
[2021-09-26] MEDS: Sodium Chloride 0.9% 1,000 ML IV SCH (09:58)
[2021-09-26] MEDS ORDERED: Iopamidol-370 76% 500 ML 1 ML ONE (12:17)
[2021-09-26 14:04] LABS: Platelet Count 176 thou/uL (130-400)
[2021-09-26] MEDS: Enoxaparin Sodium 40 MG/0.4 ML SYRINGE SC SCH (20:08)
[2021-09-27] MEDS ORDERED: Digoxin 0.5 MG/2 ML AMP SLOW IVP SCH (07:45)
[2021-09-27] MEDS ORDERED: Digoxin 0.5 MG/2 ML AMP ONE (07:45)
[2021-09-27] MEDS ORDERED: Metoprolol Tartrate 5 MG/5 ML VIAL IVP PRN (08:09)
[2021-09-27] MEDS: Potassium Chloride 10 MEQ TAB PO SCH ×2 (08:31→16:01)
[2021-09-27] MEDS: Amiodarone 200 MG TAB PO SCH ×3 (08:38→20:51)
[2021-09-27] MEDS: Aspirin 325 MG TAB PO SCH (08:38)
[2021-09-27] MEDS: Enoxaparin Sodium 40 MG/0.4 ML SYRINGE SC SCH ×2 (08:38→20:51)
[2021-09-27] MEDS: guaiFENesin/DM ER PO SCH ×2 (08:39→20:51)
[2021-09-27] MEDS: Sodium Chloride 0.65% Nasal 44 ML BOT EA NARE SCH ×3 (08:40→20:54)
[2021-09-27] MEDS: Lantus 1000 UNITS/10 ML VIAL SC SCH (08:53)
[2021-09-27] MEDS: Apalutamide [Erleada] 60 MG Tablet PO SCH (12:40)
[2021-09-27] MEDS: Dexamethasone 4 MG TAB PO SCH (12:41)
[2021-09-27] MEDS: diphenhydrAMINE 25 MG CAP PO PRN (16:01)
[2021-09-27] MEDS: traMADol HCl 50 MG TAB PO PRN (20:51)
[2021-09-27] MEDS: HumaLOG 300 UNITS/3 ML VIAL SC PRN (22:02)
[2021-09-28] MEDS: Acetaminophen 325 MG TAB PO PRN ×2 (02:32→15:07)
[2021-09-28 04:06] LABS: Anion Gap 13 mmol/L (10-20); BUN (Urea Nitrogen) 17 mg/dL (8.4-25.7); CRP (Inflammatory) 5.98 mg/dL (= or < 0.5); Calc. Creatinine Clearance 95 mL/min (70-130); Calcium 7.1 mg/dL (7.8-10.44); Carbon Dioxide 22 mmol/L (23-31); Chloride 105 mmol/L (98-107); Glucose 109 mg/dL (80-115); Potassium 4.8 mmol/L (3.5-5.1); Sodium 135 mmol/L (136-145)
[2021-09-28 04:56] LABS: #Lymphocytes 1.3 thou/uL (1.20-3.40); #Monocytes 0.6 thou/uL (0.11-0.59); #Neutrophils 7.4 thou/uL (1.40-6.50); %Basophils 0.1 % (0.0-1.0); %Eosinophils 0.2 % (0.0-10.0); %Lymphocytes 14.2 % (21.0-51.0); %Monocytes 6.5 % (0.0-10.0); %Neutrophils 79.1 % (42.0-75.0); Hemoglobin 12.8 g/dL (14.0-18.0); MDiff Complete? YES; Mean Corpuscular HGB CONC 33.4 g/dL (32.0-36.0); Mean Corpuscular Hemoglobin 30.6 pg (27.0-31.0); Mean Corpuscular Volume 91.7 fL (78.0-98.0); Platelet Clumps MODERATE; Platelet Morphology Comment PLT clumps seen-ADEQ; Red Blood Cell (RBC) Count 4.18 mill/uL (4.70-6.10); White Blood Cell (WBC) Count 9.4 thou/uL (4.8-10.8)
[2021-09-28] MEDS: guaiFENesin/DM ER PO SCH ×2 (08:24→22:49)
[2021-09-28] MEDS: Aspirin 325 MG TAB PO SCH (08:24)
[2021-09-28] MEDS: Enoxaparin Sodium 40 MG/0.4 ML SYRINGE SC SCH (08:24)
[2021-09-28] MEDS: Potassium Chloride 10 MEQ TAB PO SCH ×2 (08:24→16:23)
[2021-09-28] MEDS: Sodium Chloride 0.65% Nasal 44 ML BOT EA NARE SCH ×3 (08:25→22:51)
[2021-09-28] MEDS: Amiodarone 200 MG TAB PO SCH ×3 (08:25→22:37)
[2021-09-28] MEDS: Apalutamide [Erleada] 60 MG Tablet PO SCH (09:09)
[2021-09-28] MEDS ORDERED: Digoxin 0.5 MG/2 ML AMP SLOW IVP SCH (10:15)
[2021-09-28] MEDS ORDERED: Enoxaparin Sodium 40 MG/0.4 ML SYRINGE SC SCH (10:15)
[2021-09-28] MEDS: Lantus 1000 UNITS/10 ML VIAL SC SCH (12:46)
[2021-09-28] MEDS: Dexamethasone 4 MG TAB PO SCH (12:46)
[2021-09-28] MEDS: Digoxin 0.5 MG/2 ML AMP SLOW IVP SCH ×2 (16:19→22:39)
[2021-09-28] MEDS: Loperamide HCl 2 MG CAP PO PRN ×2 (18:44→22:53)
[2021-09-28] MEDS: traMADol HCl 50 MG TAB PO PRN (18:44)
[2021-09-28] MEDS: Enoxaparin Sodium 80 MG/0.8 ML SYRINGE SC SCH (22:48)
[2021-09-28] MEDS: HumaLOG 300 UNITS/3 ML VIAL SC PRN (22:55)
[2021-09-29] MEDS: Acetaminophen 325 MG TAB PO PRN (02:48)
[2021-09-29] MEDS: HumaLOG 300 UNITS/3 ML VIAL SC PRN ×4 (07:51→20:34)
[2021-09-29] MEDS: Digoxin 0.25 MG TAB PO SCH (08:45)
[2021-09-29] MEDS: Amiodarone 200 MG TAB PO SCH ×3 (08:45→20:18)
[2021-09-29] MEDS: Enoxaparin Sodium 80 MG/0.8 ML SYRINGE SC SCH ×2 (08:46→20:16)
[2021-09-29] MEDS: Aspirin 325 MG TAB PO SCH (08:46)
[2021-09-29] MEDS: Potassium Chloride 10 MEQ TAB PO SCH ×2 (08:48→16:07)
[2021-09-29] MEDS: guaiFENesin/DM ER PO SCH ×2 (08:50→20:17)
[2021-09-29] MEDS: Ondansetron PF 4 MG/2 ML Vial IVP PRN ×2 (09:40→23:25)
[2021-09-29] MEDS: Lantus 1000 UNITS/10 ML VIAL SC SCH (09:49)
[2021-09-29] MEDS: Sodium Chloride 0.65% Nasal 44 ML BOT EA NARE SCH ×3 (09:50→20:17)
[2021-09-29] MEDS: Dexamethasone 4 MG TAB PO SCH (11:24)
[2021-09-29] MEDS ORDERED: Aluminum & Magnesium Hydroxide 60 ML, diphenhydrAMINE 150 MG, Lidocaine 2% Viscous Solu... SSW PRN ×2 (11:39→13:30)
[2021-09-29] MEDS: Apalutamide [Erleada] 60 MG Tablet PO SCH (11:54)
[2021-09-30 04:56] LABS: Anion Gap 12 mmol/L (10-20); BUN (Urea Nitrogen) 33 mg/dL (8.4-25.7); Calc. Creatinine Clearance 70 mL/min (70-130); Calcium 6.8 mg/dL (7.8-10.44); Carbon Dioxide 23 mmol/L (23-31); Chloride 104 mmol/L (98-107); Glucose 242 mg/dL (80-115); Potassium 5.5 mmol/L (3.5-5.1); Sodium 133 mmol/L (136-145)
[2021-09-30] MEDS: HumaLOG 300 UNITS/3 ML VIAL SC PRN ×4 (05:06→21:17)
[2021-09-30] MEDS: Ondansetron PF 4 MG/2 ML Vial IVP PRN ×2 (05:16→20:04)
[2021-09-30 06:45] LABS: Band 22 % (5-11); Hemoglobin 10.6 g/dL (14.0-18.0); Lymphocytes 13 % (21-51); MDiff Complete? YES; Mean Corpuscular HGB CONC 30.9 g/dL (32.0-36.0); Mean Corpuscular Hemoglobin 28.1 pg (27.0-31.0); Mean Platelet Volume 10.3 fL (7.4-10.4); Monocytes 2 % (0-10); Neutrophil 63 % (42-75); Platelet Clumps MODERATE; Platelet Morphology Comment PLT clumps seen-ADEQ; RBC Distribution Width 14.1 % (11.5-14.5); Red Blood Cell (RBC) Count 3.77 mill/uL (4.70-6.10); White Blood Cell (WBC) Count 7.9 thou/uL (4.8-10.8)
[2021-09-30] MEDS: Digoxin 0.25 MG TAB PO SCH (07:44)
[2021-09-30] MEDS: Enoxaparin Sodium 80 MG/0.8 ML SYRINGE SC SCH ×2 (07:46→20:04)
[2021-09-30] MEDS: Amiodarone 200 MG TAB PO SCH ×3 (07:46→20:04)
[2021-09-30] MEDS: Aspirin 325 MG TAB PO SCH (07:46)
[2021-09-30] MEDS: Lantus 1000 UNITS/10 ML VIAL SC SCH (07:50)
[2021-09-30] MEDS: guaiFENesin/DM ER PO SCH ×2 (07:50→20:03)
[2021-09-30] MEDS ORDERED: Furosemide 40 MG/4 ML VIAL SLOW IVP SCH (08:15)
[2021-09-30] MEDS: methylPREDNISolone Sod Succ/PF 80 MG in Sodium Chloride 0.9% 250 ML 250 ML IVPB SCH (09:05)
[2021-09-30] MEDS: BARICITINIB 2 MG TAB PO SCH ×3 (09:06→09:18)
[2021-09-30] MEDS: Sodium Chloride 0.65% Nasal 44 ML BOT EA NARE SCH ×3 (09:19→20:34)
[2021-09-30] MEDS: Potassium Chloride 10 MEQ TAB PO SCH ×2 (11:12→14:36)
[2021-09-30] MEDS ORDERED: Ascorbic Acid 500 mg Chewable Tablet PO SCH (11:15)
[2021-09-30] MEDS: Apalutamide [Erleada] 60 MG Tablet PO SCH (16:16)
[2021-09-30] MEDS: Ascorbic Acid 500 mg Chewable Tablet PO SCH (20:04)
[2021-10-01 04:00] LABS: Anion Gap 13 mmol/L (10-20); BUN (Urea Nitrogen) 35 mg/dL (8.4-25.7); CRP (Inflammatory) 4.93 mg/dL (= or < 0.5); Calc. Creatinine Clearance 72 mL/min (70-130); Calcium 6.9 mg/dL (7.8-10.44); Carbon Dioxide 25 mmol/L (23-31); Chloride 104 mmol/L (98-107); Glucose 217 mg/dL (80-115); Potassium 5.8 mmol/L (3.5-5.1); Sodium 136 mmol/L (136-145)
[2021-10-01 05:14] LABS: Band 8 % (5-11); Hemoglobin 10.7 g/dL (14.0-18.0); Lymphocytes 5 % (21-51); MDiff Complete? YES; Mean Corpuscular HGB CONC 32.5 g/dL (32.0-36.0); Mean Corpuscular Hemoglobin 29.4 pg (27.0-31.0); Mean Corpuscular Volume 90.5 fL (78.0-98.0); Mean Platelet Volume 11.4 fL (7.4-10.4); Monocytes 7 % (0-10); Neutrophil 80 % (42-75); Platelet Clumps MODERATE; Platelet Morphology Comment PLT clumps seen-ADEQ; Red Blood Cell (RBC) Count 3.65 mill/uL (4.70-6.10); White Blood Cell (WBC) Count 6.1 thou/uL (4.8-10.8)
[2021-10-01] MEDS: HumaLOG 300 UNITS/3 ML VIAL SC PRN ×4 (05:24→21:08)
[2021-10-01] MEDS: methylPREDNISolone Sod Succ/PF 80 MG in Sodium Chloride 0.9% 250 ML 250 ML IVPB SCH (07:37)
[2021-10-01] MEDS: Digoxin 0.25 MG TAB PO SCH (07:49)
[2021-10-01] MEDS: Enoxaparin Sodium 80 MG/0.8 ML SYRINGE SC SCH ×2 (07:49→20:53)
[2021-10-01] MEDS: Ascorbic Acid 500 mg Chewable Tablet PO SCH ×2 (07:49→20:53)
[2021-10-01] MEDS: Amiodarone 200 MG TAB PO SCH ×2 (07:49→20:53)
[2021-10-01] MEDS: BARICITINIB 2 MG TAB PO SCH (07:49)
[2021-10-01] MEDS: Lantus 1000 UNITS/10 ML VIAL SC SCH (08:13)
[2021-10-01] MEDS: Potassium Chloride 10 MEQ TAB PO SCH (09:52)
[2021-10-01] MEDS: Sodium Chloride 0.65% Nasal 44 ML BOT EA NARE SCH ×3 (10:07→21:16)
[2021-10-01] MEDS: Aspirin 325 MG TAB PO SCH (10:07)
[2021-10-01] MEDS: guaiFENesin/DM ER PO SCH ×2 (10:07→20:53)
[2021-10-01] MEDS ORDERED: Furosemide 40 MG/4 ML VIAL IVP SCH (14:14)
[2021-10-01] MEDS: Amino Acids 4.25 %/Dextrose 5% 1,000 ML IV SCH (16:08)
[2021-10-01] MEDS: Apalutamide [Erleada] 60 MG Tablet PO SCH (17:30)
[2021-10-02] MEDS: Amino Acids 4.25 %/Dextrose 5% 1,000 ML IV SCH ×2 (03:59→18:28)
[2021-10-02 05:44] LABS: Band 15 % (5-11); Hemoglobin 10.1 g/dL (14.0-18.0); Lymphocytes 2 % (21-51); MDiff Complete? YES; Mean Corpuscular HGB CONC 32.1 g/dL (32.0-36.0); Mean Corpuscular Hemoglobin 28.8 pg (27.0-31.0); Mean Corpuscular Volume 89.5 fL (78.0-98.0); Mean Platelet Volume 9.8 fL (7.4-10.4); Monocytes 5 % (0-10); Neutrophil 78 % (42-75); Platelet Clumps MARKED; Platelet Morphology Comment PLT clumps seen-ADEQ; RBC Distribution Width 13.8 % (11.5-14.5); White Blood Cell (WBC) Count 6.7 thou/uL (4.8-10.8)
[2021-10-02] MEDS: HumaLOG 300 UNITS/3 ML VIAL SC PRN ×2 (06:11→08:28)
[2021-10-02 07:26] LABS: ALT (SGPT) 45 U/L (8-55); AST (SGOT) 82 U/L (5-34); Albumin 2.7 g/dL (3.4-4.8); Alkaline Phosphatase 55 U/L (40-110); Anion Gap 10 mmol/L (10-20); BUN (Urea Nitrogen) 40 mg/dL (8.4-25.7); Bilirubin, Direct 0.3 mg/dL (0.1-0.3); Bilirubin, Total 0.5 mg/dL (0.2-1.2); Calc. Creatinine Clearance 69 mL/min (70-130); Calcium 6.4 mg/dL (7.8-10.44); Carbon Dioxide 28 mmol/L (23-31); Chloride 101 mmol/L (98-107); Glucose 381 mg/dL (80-115); Potassium 5.4 mmol/L (3.5-5.1); Protein, Total 5.4 g/dL (5.8-8.1); Sodium 134 mmol/L (136-145)
[2021-10-02] MEDS: Furosemide 40 MG/4 ML VIAL SLOW IVP SCH (08:06)
[2021-10-02] MEDS: Ascorbic Acid 500 mg Chewable Tablet PO SCH ×2 (08:06→20:28)
[2021-10-02] MEDS: Enoxaparin Sodium 80 MG/0.8 ML SYRINGE SC SCH ×2 (08:06→20:28)
[2021-10-02] MEDS: Amiodarone 200 MG TAB PO SCH ×2 (08:07→20:28)
[2021-10-02] MEDS: Aspirin 325 MG TAB PO SCH (08:07)
[2021-10-02] MEDS: Digoxin 0.25 MG TAB PO SCH (08:07)
[2021-10-02] MEDS: BARICITINIB 2 MG TAB PO SCH (08:07)
[2021-10-02] MEDS: Sodium Chloride 0.65% Nasal 44 ML BOT EA NARE SCH ×3 (08:11→22:24)
[2021-10-02] MEDS: Lantus 1000 UNITS/10 ML VIAL SC SCH (08:27)
[2021-10-02] MEDS: guaiFENesin/DM ER PO SCH ×2 (08:33→20:28)
[2021-10-02] MEDS: methylPREDNISolone Sod Succ/PF 80 MG in Sodium Chloride 0.9% 250 ML 250 ML IVPB SCH (08:42)
[2021-10-02] MEDS: Apalutamide [Erleada] 60 MG Tablet PO SCH (09:01)
[2021-10-02] MEDS: Acetaminophen 325 MG TAB PO PRN ×2 (12:50→23:29)
[2021-10-03 04:39] LABS: Anion Gap 11 mmol/L (10-20); BUN (Urea Nitrogen) 38 mg/dL (8.4-25.7); CRP (Inflammatory) 4.52 mg/dL (= or < 0.5); Calc. Creatinine Clearance 73 mL/min (70-130); Calcium 6.8 mg/dL (7.8-10.44); Carbon Dioxide 28 mmol/L (23-31); Chloride 99 mmol/L (98-107); Glucose 287 mg/dL (80-115); Potassium 4.6 mmol/L (3.5-5.1); Sodium 133 mmol/L (136-145)
[2021-10-03] MEDS: Amino Acids 4.25 %/Dextrose 5% 1,000 ML IV SCH ×2 (05:17→18:03)
[2021-10-03] MEDS: HumaLOG 300 UNITS/3 ML VIAL SC PRN ×4 (05:17→22:17)
[2021-10-03] MEDS: Acetaminophen 325 MG TAB PO PRN ×2 (05:47→16:00)
[2021-10-03 06:02] LABS: Band 15 % (5-11); Hemoglobin 7.8 g/dL (14.0-18.0); Lymphocytes 6 % (21-51); MDiff Complete? YES; Mean Corpuscular HGB CONC 32.9 g/dL (32.0-36.0); Mean Corpuscular Hemoglobin 29.4 pg (27.0-31.0); Mean Corpuscular Volume 89.2 fL (78.0-98.0); Mean Platelet Volume 10.1 fL (7.4-10.4); Monocytes 8 % (0-10); Myelocyte 1 % (0-0); Neutrophil 70 % (42-75); Platelet Clumps MODERATE; Platelet Morphology Comment PLT clumps seen-ADEQ; RBC Distribution Width 13.6 % (11.5-14.5); Red Blood Cell (RBC) Count 2.66 mill/uL (4.70-6.10); White Blood Cell (WBC) Count 7.8 thou/uL (4.8-10.8)
[2021-10-03] MEDS ORDERED: Piperacillin/Tazobactam 3.375 GM in Sodium Chloride 0.9% 100 ML IVPB SCH ×2 (09:15→11:00)
[2021-10-03] MEDS ORDERED: VANCOMYCIN 1.25 GM/250 ML BAG 1.25 GM in Premix Bag 1 BAG IVPB SCH (09:30)
[2021-10-03] MEDS: methylPREDNISolone Sod Succ/PF 80 MG in Sodium Chloride 0.9% 250 ML 250 ML IVPB SCH (09:43)
[2021-10-03] MEDS: Enoxaparin Sodium 80 MG/0.8 ML SYRINGE SC SCH ×2 (09:43→20:28)
[2021-10-03] MEDS: Lantus 1000 UNITS/10 ML VIAL SC SCH (09:44)
[2021-10-03] MEDS: Furosemide 40 MG/4 ML VIAL SLOW IVP SCH ×2 (09:58→20:29)
[2021-10-03 10:34] LABS: Hemoglobin 11.9 g/dL (14.0-18.0); White Blood Cell (WBC) Count 8.1 thou/uL (4.8-10.8)
[2021-10-03 10:52] LABS: Mean Corpuscular Hemoglobin 29.7 pg (27.0-31.0); Mean Platelet Volume 10.3 fL (7.4-10.4); RBC Distribution Width 14.1 % (11.5-14.5)
[2021-10-03] MEDS: Sodium Chloride 0.65% Nasal 44 ML BOT EA NARE SCH ×3 (11:29→22:17)
[2021-10-03] MEDS: Digoxin 0.25 MG TAB PO SCH (12:05)
[2021-10-03] MEDS: BARICITINIB 2 MG TAB PO SCH (12:05)
[2021-10-03] MEDS: Ascorbic Acid 500 mg Chewable Tablet PO SCH ×2 (12:05→20:29)
[2021-10-03] MEDS: Aspirin 325 MG TAB PO SCH (12:05)
[2021-10-03] MEDS: guaiFENesin/DM ER PO SCH ×2 (12:06→20:29)
[2021-10-03] MEDS: Apalutamide [Erleada] 60 MG Tablet PO SCH (12:06)
[2021-10-03] MEDS: Amiodarone 200 MG TAB PO SCH ×2 (12:06→20:29)
[2021-10-03] MEDS ORDERED: PHENYLEPHRINE-NS 100 MCG/ML 10 ML SYRINGE ONE (12:31)
[2021-10-03] MEDS: Piperacillin/Tazobactam 3.375 GM in Sodium Chloride 0.9% 100 ML IVPB SCH ×2 (14:02→23:28)
[2021-10-03] MEDS: VANCOMYCIN 1.25 GM/250 ML BAG 1.25 GM in Premix Bag 1 BAG IVPB SCH (20:27)
[2021-10-04] MEDS: HumaLOG 300 UNITS/3 ML VIAL SC PRN ×3 (03:32→17:09)
[2021-10-04 04:13] LABS: Band 10 % (5-11); Lymphocytes 11 % (21-51); MDiff Complete? YES; Mean Corpuscular HGB CONC 32.6 g/dL (32.0-36.0); Mean Corpuscular Hemoglobin 29.1 pg (27.0-31.0); Mean Corpuscular Volume 89.3 fL (78.0-98.0); Mean Platelet Volume 10.2 fL (7.4-10.4); Monocytes 2 % (0-10); Neutrophil 77 % (42-75); Platelet Clumps MODERATE; Platelet Morphology Comment PLT clumps seen-ADEQ; RBC Distribution Width 13.8 % (11.5-14.5); Red Blood Cell (RBC) Count 3.44 mill/uL (4.70-6.10); White Blood Cell (WBC) Count 5.8 thou/uL (4.8-10.8)
[2021-10-04 04:14] LABS: Anion Gap 13 mmol/L (10-20); BUN (Urea Nitrogen) 37 mg/dL (8.4-25.7); Calc. Creatinine Clearance 77 mL/min (70-130); Calcium 6.5 mg/dL (7.8-10.44); Carbon Dioxide 23 mmol/L (23-31); Chloride 101 mmol/L (98-107); Glucose 241 mg/dL (80-115); Sodium 133 mmol/L (136-145)
[2021-10-04] MEDS: Piperacillin/Tazobactam 3.375 GM in Sodium Chloride 0.9% 100 ML IVPB SCH ×3 (06:00→23:59)
[2021-10-04] MEDS: Amino Acids 4.25 %/Dextrose 5% 1,000 ML IV SCH ×2 (06:00→19:26)
[2021-10-04] MEDS: BARICITINIB 2 MG TAB PO SCH (09:43)
[2021-10-04] MEDS: Ascorbic Acid 500 mg Chewable Tablet PO SCH ×3 (09:43→21:49)
[2021-10-04] MEDS: Enoxaparin Sodium 80 MG/0.8 ML SYRINGE SC SCH ×2 (09:43→21:21)
[2021-10-04] MEDS: methylPREDNISolone Sod Succ/PF 80 MG in Sodium Chloride 0.9% 250 ML 250 ML IVPB SCH (09:43)
[2021-10-04] MEDS: Amiodarone 200 MG TAB PO SCH ×4 (09:44→23:00)
[2021-10-04] MEDS: Apalutamide [Erleada] 60 MG Tablet PO SCH (09:45)
[2021-10-04] MEDS: Sodium Chloride 0.65% Nasal 44 ML BOT EA NARE SCH ×4 (09:45→21:48)
[2021-10-04] MEDS: Lantus 1000 UNITS/10 ML VIAL SC SCH (09:45)
[2021-10-04] MEDS: Aspirin 325 MG TAB PO SCH (09:50)
[2021-10-04] MEDS: Furosemide 40 MG/4 ML VIAL SLOW IVP SCH ×2 (09:50→21:22)
[2021-10-04] MEDS: VANCOMYCIN 1.25 GM/250 ML BAG 1.25 GM in Premix Bag 1 BAG IVPB SCH (09:51)
[2021-10-04] MEDS: guaiFENesin/DM ER PO SCH ×2 (09:51→21:23)
[2021-10-04 20:04] LABS: Vancomycin, Trough 21.8 ug/mL
[2021-10-04] MEDS: Vancomycin 1 GM in Premix Bag 1 BAG IVPB SCH (21:20)
[2021-10-05 04:33] LABS: Band 7 % (5-11); Hemoglobin 10.2 g/dL (14.0-18.0); Hypochromia SLIGHT = 6-15 cells (100X) (0-5/hpf); Lymphocytes 6 % (21-51); MDiff Complete? YES; Mean Corpuscular HGB CONC 32.8 g/dL (32.0-36.0); Mean Corpuscular Hemoglobin 28.6 pg (27.0-31.0); Mean Corpuscular Volume 87.2 fL (78.0-98.0); Mean Platelet Volume 11.1 fL (7.4-10.4); Neutrophil 87 % (42-75); Platelet Morphology Comment Appears Adequate; RBC Distribution Width 13.8 % (11.5-14.5); Red Blood Cell (RBC) Count 3.58 mill/uL (4.70-6.10); White Blood Cell (WBC) Count 6.4 thou/uL (4.8-10.8)
[2021-10-05 04:45] LABS: ALT (SGPT) 19 U/L (8-55); AST (SGOT) 19 U/L (5-34); Albumin 2.7 g/dL (3.4-4.8); Alkaline Phosphatase 61 U/L (40-110); Anion Gap 13 mmol/L (10-20); BUN (Urea Nitrogen) 39 mg/dL (8.4-25.7); Bilirubin, Direct 0.3 mg/dL (0.1-0.3); Bilirubin, Total 0.6 mg/dL (0.2-1.2); Calc. Creatinine Clearance 73 mL/min (70-130); Calcium 6.4 mg/dL (7.8-10.44); Carbon Dioxide 23 mmol/L (23-31); Chloride 97 mmol/L (98-107); Glucose 240 mg/dL (80-115); Potassium 3.6 mmol/L (3.5-5.1); Protein, Total 5.9 g/dL (5.8-8.1); Sodium 129 mmol/L (136-145)
[2021-10-05] MEDS ORDERED: Potassium Chloride 20 MEQ TAB PO SCH (06:15)
[2021-10-05] MEDS: Enoxaparin Sodium 80 MG/0.8 ML SYRINGE SC SCH ×2 (09:44→22:13)
[2021-10-05] MEDS: Vancomycin 1 GM in Premix Bag 1 BAG IVPB SCH ×2 (09:44→22:13)
[2021-10-05] MEDS: Piperacillin/Tazobactam 3.375 GM in Sodium Chloride 0.9% 100 ML IVPB SCH ×3 (09:44→23:40)
[2021-10-05] MEDS: BARICITINIB 2 MG TAB PO SCH (09:45)
[2021-10-05] MEDS: Metoprolol Tartrate 25 MG TAB PO SCH ×2 (09:46→22:14)
[2021-10-05] MEDS: Ascorbic Acid 500 mg Chewable Tablet PO SCH ×3 (09:46→22:46)
[2021-10-05] MEDS: Aspirin 325 MG TAB PO SCH (09:46)
[2021-10-05] MEDS: Amiodarone 200 MG TAB PO SCH ×2 (09:46→22:15)
[2021-10-05] MEDS: methylPREDNISolone Sod Succ/PF 80 MG in Sodium Chloride 0.9% 250 ML 250 ML IVPB SCH (09:50)
[2021-10-05] MEDS: guaiFENesin/DM ER PO SCH ×3 (10:20→22:46)
[2021-10-05] MEDS: Sodium Chloride 0.65% Nasal 44 ML BOT EA NARE SCH ×3 (10:21→22:43)
[2021-10-05] MEDS: Apalutamide [Erleada] 60 MG Tablet PO SCH (10:21)
[2021-10-05] MEDS: Lantus 1000 UNITS/10 ML VIAL SC SCH (10:22)
[2021-10-05] MEDS: Amino Acids 4.25 %/Dextrose 5% 1,000 ML IV SCH ×2 (10:26→22:43)
[2021-10-05] MEDS: Potassium Chloride 20 MEQ in Premix Bag 1 BAG IVPB SCH ×2 (11:59→14:14)
[2021-10-05] MEDS: HumaLOG 300 UNITS/3 ML VIAL SC PRN ×2 (18:28→22:44)
[2021-10-06 04:53] LABS: Band 4 % (5-11); Elliptocytes SLIGHT = 2-5 cells (100X) (0-1/hpf); Eosinophils 1 % (0-10); Hemoglobin 10.6 g/dL (14.0-18.0); Lymphocytes 11 % (21-51); MDiff Complete? YES; Mean Corpuscular Hemoglobin 29.8 pg (27.0-31.0); Mean Corpuscular Volume 87.6 fL (78.0-98.0); Mean Platelet Volume 7.4 fL (7.4-10.4); Monocytes 4 % (0-10); Neutrophil 80 % (42-75); Platelet Clumps MODERATE; Platelet Morphology Comment PLT clumps seen-ADEQ; Polychromasia SLIGHT = 2-3 cells (100X) (0-2/hpf); RBC Distribution Width 13.7 % (11.5-14.5); Red Blood Cell (RBC) Count 3.55 mill/uL (4.70-6.10); White Blood Cell (WBC) Count 6.6 thou/uL (4.8-10.8)
[2021-10-06 04:58] LABS: Anion Gap 11 mmol/L (10-20); BUN (Urea Nitrogen) 35 mg/dL (8.4-25.7); Calc. Creatinine Clearance 90 mL/min (70-130); Calcium 6.1 mg/dL (7.8-10.44); Carbon Dioxide 22 mmol/L (23-31); Chloride 100 mmol/L (98-107); Glucose 168 mg/dL (80-115); Potassium 3.9 mmol/L (3.5-5.1); Sodium 129 mmol/L (136-145)
[2021-10-06] MEDS: Piperacillin/Tazobactam 3.375 GM in Sodium Chloride 0.9% 100 ML IVPB SCH ×3 (06:02→23:37)
[2021-10-06] MEDS: Ondansetron PF 4 MG/2 ML Vial IVP PRN ×2 (07:45→13:53)
[2021-10-06] MEDS: BARICITINIB 2 MG TAB PO SCH (09:11)
[2021-10-06] MEDS: Enoxaparin Sodium 80 MG/0.8 ML SYRINGE SC SCH ×2 (09:11→21:20)
[2021-10-06] MEDS: Aspirin 325 MG TAB PO SCH (09:12)
[2021-10-06] MEDS: Ascorbic Acid 500 mg Chewable Tablet PO SCH ×4 (09:12→21:53)
[2021-10-06] MEDS: Amiodarone 200 MG TAB PO SCH ×2 (09:12→21:21)
[2021-10-06] MEDS: Escitalopram Oxalate 10 mg Tablet PO SCH (09:12)
[2021-10-06] MEDS: Metoprolol Tartrate 25 MG TAB PO SCH ×3 (09:13→21:52)
[2021-10-06] MEDS: Lantus 1000 UNITS/10 ML VIAL SC SCH (09:26)
[2021-10-06] MEDS: HumaLOG 300 UNITS/3 ML VIAL SC PRN ×2 (09:27→21:55)
[2021-10-06] MEDS: Apalutamide [Erleada] 60 MG Tablet PO SCH (09:45)
[2021-10-06 10:05] LABS: Vancomycin, Trough 15.8 ug/mL
[2021-10-06] MEDS: guaiFENesin/DM ER PO SCH ×2 (10:10→21:20)
[2021-10-06] MEDS: Sodium Chloride 0.65% Nasal 44 ML BOT EA NARE SCH ×3 (10:11→21:52)
[2021-10-06] MEDS: Vancomycin 1 GM in Premix Bag 1 BAG IVPB SCH ×2 (10:12→21:20)
[2021-10-06] MEDS: Acetaminophen 325 MG TAB PO PRN (11:47)
[2021-10-06] MEDS: methylPREDNISolone Sod Succ/PF 80 MG in Sodium Chloride 0.9% 250 ML 250 ML IVPB SCH (12:05)
[2021-10-06] MEDS: AA 4.25 %/CALCIUM/LYTES/D5W 2,000 ML IV SCH (14:50)
[2021-10-06] MEDS: Amino Acids 4.25 %/Dextrose 5% 1,000 ML IV SCH (16:16)
[2021-10-07] MEDS: diphenhydrAMINE 25 MG CAP PO PRN ×2 (01:49→21:04)
[2021-10-07 04:17] LABS: Anion Gap 11 mmol/L (10-20); BUN (Urea Nitrogen) 29 mg/dL (8.4-25.7); Calc. Creatinine Clearance 99 mL/min (70-130); Calcium 6.6 mg/dL (7.8-10.44); Carbon Dioxide 22 mmol/L (23-31); Chloride 104 mmol/L (98-107); Glucose 103 mg/dL (80-115); Potassium 4.1 mmol/L (3.5-5.1); Sodium 133 mmol/L (136-145)
[2021-10-07 04:21] LABS: Band 7 % (5-11); Hemoglobin 10.1 g/dL (14.0-18.0); Hypochromia SLIGHT = 6-15 cells (100X) (0-5/hpf); Lymphocytes 9 % (21-51); MDiff Complete? YES; Mean Corpuscular HGB CONC 33.8 g/dL (32.0-36.0); Mean Corpuscular Hemoglobin 29.3 pg (27.0-31.0); Mean Corpuscular Volume 86.7 fL (78.0-98.0); Mean Platelet Volume 11.2 fL (7.4-10.4); Monocytes 1 % (0-10); Neutrophil 83 % (42-75); Platelet Morphology Comment PLT clumps seen-ADEQ; RBC Distribution Width 13.7 % (11.5-14.5); Red Blood Cell (RBC) Count 3.45 mill/uL (4.70-6.10); White Blood Cell (WBC) Count 6.3 thou/uL (4.8-10.8)
[2021-10-07] MEDS: methylPREDNISolone Sod Succ/PF 80 MG in Sodium Chloride 0.9% 250 ML 250 ML IVPB SCH (06:01)
[2021-10-07] MEDS: Piperacillin/Tazobactam 3.375 GM in Sodium Chloride 0.9% 100 ML IVPB SCH ×3 (06:01→22:00)
[2021-10-07] MEDS: Ascorbic Acid 500 mg Chewable Tablet PO SCH ×2 (09:07→21:04)
[2021-10-07] MEDS: BARICITINIB 2 MG TAB PO SCH (09:07)
[2021-10-07] MEDS: Amiodarone 200 MG TAB PO SCH ×2 (09:07→21:04)
[2021-10-07] MEDS: Aspirin 325 MG TAB PO SCH (09:07)
[2021-10-07] MEDS: Enoxaparin Sodium 80 MG/0.8 ML SYRINGE SC SCH ×2 (09:08→21:04)
[2021-10-07] MEDS: guaiFENesin/DM ER PO SCH ×2 (09:08→21:04)
[2021-10-07] MEDS: Escitalopram Oxalate 10 mg Tablet PO SCH (09:08)
[2021-10-07] MEDS: Vancomycin 1 GM in Premix Bag 1 BAG IVPB SCH ×3 (09:09→23:20)
[2021-10-07] MEDS: Ondansetron PF 4 MG/2 ML Vial IVP PRN (09:09)
[2021-10-07] MEDS: Sodium Chloride 0.65% Nasal 44 ML BOT EA NARE SCH ×3 (09:10→21:05)
[2021-10-07] MEDS: Apalutamide [Erleada] 60 MG Tablet PO SCH (09:10)
[2021-10-07] MEDS: Metoprolol Tartrate 25 MG TAB PO SCH ×2 (09:15→21:04)
[2021-10-07] MEDS: Lantus 1000 UNITS/10 ML VIAL SC SCH (10:23)
[2021-10-07] MEDS ORDERED: Lantus 1000 UNITS/10 ML VIAL SC SCH (11:30)
[2021-10-07] MEDS: HumaLOG 300 UNITS/3 ML VIAL SC PRN ×2 (15:49→21:05)
[2021-10-07] MEDS: AA 4.25 %/CALCIUM/LYTES/D5W 2,000 ML IV SCH (16:34)
[2021-10-07 23:05] LABS: Vancomycin, Trough 41.9 ug/mL
[2021-10-08] MEDS: Ondansetron PF 4 MG/2 ML Vial IVP PRN ×2 (03:40→20:04)
[2021-10-08] MEDS: diphenhydrAMINE 25 MG CAP PO PRN ×2 (03:40→20:04)
[2021-10-08] MEDS: HumaLOG 300 UNITS/3 ML VIAL SC PRN ×4 (04:21→21:17)
[2021-10-08] MEDS: Piperacillin/Tazobactam 3.375 GM in Sodium Chloride 0.9% 100 ML IVPB SCH ×3 (06:02→22:45)
[2021-10-08 06:29] LABS: Mean Corpuscular Hemoglobin 27.9 pg (27.0-31.0); Mean Corpuscular Volume 87.3 fL (78.0-98.0); Mean Platelet Volume 5.8 fL (7.4-10.4); Platelet Count 189 thou/uL (130-400); Red Blood Cell (RBC) Count 3.95 mill/uL (4.70-6.10); White Blood Cell (WBC) Count 6.6 thou/uL (4.8-10.8)
[2021-10-08 06:39] LABS: Band 5 % (5-11); Hypochromia SLIGHT = 6-15 cells (100X) (0-5/hpf); Lymphocytes 9 % (21-51); MDiff Complete? YES; Monocytes 2 % (0-10); Neutrophil 84 % (42-75); Platelet Morphology Comment Appears Adequate
[2021-10-08 06:50] LABS: ALT (SGPT) 16 U/L (8-55); AST (SGOT) 23 U/L (5-34); Albumin 2.3 g/dL (3.4-4.8); Alkaline Phosphatase 63 U/L (40-110); Anion Gap 10 mmol/L (10-20); BUN (Urea Nitrogen) 26 mg/dL (8.4-25.7); Bilirubin, Direct 0.1 mg/dL (0.1-0.3); Bilirubin, Total 0.3 mg/dL (0.2-1.2); Calc. Creatinine Clearance 97 mL/min (70-130); Calcium 6.6 mg/dL (7.8-10.44); Carbon Dioxide 24 mmol/L (23-31); Chloride 103 mmol/L (98-107); Glucose 160 mg/dL (80-115); Potassium 4.6 mmol/L (3.5-5.1); Protein, Total 5.5 g/dL (5.8-8.1); Sodium 132 mmol/L (136-145)
[2021-10-08] MEDS: BARICITINIB 2 MG TAB PO SCH (08:32)
[2021-10-08] MEDS: Amiodarone 200 MG TAB PO SCH ×2 (08:32→20:04)
[2021-10-08] MEDS: Aspirin 325 MG TAB PO SCH (08:32)
[2021-10-08] MEDS: guaiFENesin/DM ER PO SCH ×2 (08:32→20:05)
[2021-10-08] MEDS: Enoxaparin Sodium 80 MG/0.8 ML SYRINGE SC SCH ×2 (08:32→20:04)
[2021-10-08] MEDS: Ascorbic Acid 500 mg Chewable Tablet PO SCH ×2 (08:32→20:04)
[2021-10-08] MEDS: Metoprolol Tartrate 25 MG TAB PO SCH ×2 (08:33→20:04)
[2021-10-08] MEDS: Escitalopram Oxalate 10 mg Tablet PO SCH (08:33)
[2021-10-08] MEDS: Apalutamide [Erleada] 60 MG Tablet PO SCH (08:34)
[2021-10-08] MEDS: Sodium Chloride 0.65% Nasal 44 ML BOT EA NARE SCH ×3 (08:34→20:05)
[2021-10-08] MEDS: Lantus 1000 UNITS/10 ML VIAL SC SCH (09:25)
[2021-10-08] MEDS: methylPREDNISolone Sod Succ/PF 80 MG in Sodium Chloride 0.9% 250 ML 250 ML IVPB SCH (15:33)
[2021-10-08] MEDS: AA 4.25 %/CALCIUM/LYTES/D5W 2,000 ML IV SCH (17:03)
[2021-10-08] MEDS: Acetaminophen 325 MG TAB PO PRN (18:15)
[2021-10-09 04:50] LABS: Band 5 % (5-11); Eosinophils 3 % (0-10); Hemoglobin 9.9 g/dL (14.0-18.0); Hypochromia SLIGHT = 6-15 cells (100X) (0-5/hpf); Lymphocytes 7 % (21-51); MDiff Complete? YES; Mean Corpuscular HGB CONC 32.5 g/dL (32.0-36.0); Mean Corpuscular Hemoglobin 28.8 pg (27.0-31.0); Mean Corpuscular Volume 88.7 fL (78.0-98.0); Mean Platelet Volume 10.2 fL (7.4-10.4); Monocytes 5 % (0-10); Neutrophil 80 % (42-75); Platelet Morphology Comment PLT clumps seen-ADEQ; Red Blood Cell (RBC) Count 3.43 mill/uL (4.70-6.10); White Blood Cell (WBC) Count 8.6 thou/uL (4.8-10.8)
[2021-10-09 04:55] LABS: Vancomycin, Random 8.9 ug/mL (See Comment)
[2021-10-09] MEDS ORDERED: Vancomycin 1 GM in Premix Bag 1 BAG IVPB SCH (05:00)
[2021-10-09 05:38] LABS: Anion Gap 9 mmol/L (10-20); BUN (Urea Nitrogen) 29 mg/dL (8.4-25.7); Calc. Creatinine Clearance 95 mL/min (70-130); Calcium 7.6 mg/dL (7.8-10.44); Carbon Dioxide 25 mmol/L (23-31); Chloride 106 mmol/L (98-107); Glucose 132 mg/dL (80-115); Potassium 5.1 mmol/L (3.5-5.1); Sodium 135 mmol/L (136-145)
[2021-10-09] MEDS: Piperacillin/Tazobactam 3.375 GM in Sodium Chloride 0.9% 100 ML IVPB SCH ×3 (05:58→23:08)
[2021-10-09] MEDS: Vancomycin 1.5 GRAM/300 ML BAG 1.5 GM in Premix Bag 1 BAG IVPB SCH (05:58)
[2021-10-09] MEDS: Enoxaparin Sodium 80 MG/0.8 ML SYRINGE SC SCH ×2 (08:34→21:41)
[2021-10-09] MEDS: Amiodarone 200 MG TAB PO SCH ×2 (08:35→21:42)
[2021-10-09] MEDS: Ascorbic Acid 500 mg Chewable Tablet PO SCH ×2 (08:35→21:42)
[2021-10-09] MEDS: guaiFENesin/DM ER PO SCH ×2 (08:35→21:49)
[2021-10-09] MEDS: BARICITINIB 2 MG TAB PO SCH (08:35)
[2021-10-09] MEDS: Escitalopram Oxalate 10 mg Tablet PO SCH (08:36)
[2021-10-09] MEDS: Aspirin 325 MG TAB PO SCH (08:36)
[2021-10-09] MEDS: Metoprolol Tartrate 25 MG TAB PO SCH ×2 (08:36→21:41)
[2021-10-09] MEDS: Sodium Chloride 0.65% Nasal 44 ML BOT EA NARE SCH ×3 (08:37→21:42)
[2021-10-09] MEDS: Apalutamide [Erleada] 60 MG Tablet PO SCH (08:37)
[2021-10-09] MEDS: Lantus 1000 UNITS/10 ML VIAL SC SCH (09:59)
[2021-10-09] MEDS: HumaLOG 300 UNITS/3 ML VIAL SC PRN (10:00)
[2021-10-09] MEDS: methylPREDNISolone Sod Succ/PF 80 MG in Sodium Chloride 0.9% 250 ML 250 ML IVPB SCH (15:52)
[2021-10-09] MEDS: AA 4.25 %/CALCIUM/LYTES/D5W 2,000 ML IV SCH (15:53)
[2021-10-09] MEDS: Ondansetron PF 4 MG/2 ML Vial IVP PRN (21:40)
[2021-10-09] MEDS: Melatonin 3 MG TAB PO SCH ×2 (23:10)
[2021-10-10] MEDS: Metoprolol Tartrate 25 MG TAB PO SCH ×3 (00:12→21:03)
[2021-10-10] MEDS: Acetaminophen 325 MG TAB PO PRN (03:26)
[2021-10-10 04:54] LABS: Band 4 % (5-11); Eosinophils 1 % (0-10); Hemoglobin 7.9 g/dL (14.0-18.0); Hypochromia SLIGHT = 6-15 cells (100X) (0-5/hpf); Lymphocytes 10 % (21-51); MDiff Complete? YES; Mean Corpuscular HGB CONC 32.2 g/dL (32.0-36.0); Mean Corpuscular Hemoglobin 28.3 pg (27.0-31.0); Mean Corpuscular Volume 87.9 fL (78.0-98.0); Mean Platelet Volume 10.1 fL (7.4-10.4); Monocytes 1 % (0-10); Neutrophil 84 % (42-75); Platelet Morphology Comment PLT clumps seen-ADEQ; RBC Distribution Width 13.9 % (11.5-14.5); Red Blood Cell (RBC) Count 2.77 mill/uL (4.70-6.10); White Blood Cell (WBC) Count 8.2 thou/uL (4.8-10.8)
[2021-10-10 04:58] LABS: Anion Gap 10 mmol/L (10-20); BUN (Urea Nitrogen) 28 mg/dL (8.4-25.7); Calc. Creatinine Clearance 100 mL/min (70-130); Calcium 7.8 mg/dL (7.8-10.44); Carbon Dioxide 25 mmol/L (23-31); Chloride 104 mmol/L (98-107); Glucose 95 mg/dL (80-115); Potassium 4.9 mmol/L (3.5-5.1); Sodium 134 mmol/L (136-145)
[2021-10-10] MEDS: Piperacillin/Tazobactam 3.375 GM in Sodium Chloride 0.9% 100 ML IVPB SCH (06:24)
[2021-10-10] MEDS: Vancomycin 1.5 GRAM/300 ML BAG 1.5 GM in Premix Bag 1 BAG IVPB SCH (06:24)
[2021-10-10] MEDS: BARICITINIB 2 MG TAB PO SCH (09:24)
[2021-10-10] MEDS: Escitalopram Oxalate 10 mg Tablet PO SCH (09:24)
[2021-10-10] MEDS: Aspirin 325 MG TAB PO SCH (09:24)
[2021-10-10] MEDS: Enoxaparin Sodium 80 MG/0.8 ML SYRINGE SC SCH ×2 (09:24→21:02)
[2021-10-10] MEDS: Ascorbic Acid 500 mg Chewable Tablet PO SCH ×2 (09:24→21:03)
[2021-10-10] MEDS: Amiodarone 200 MG TAB PO SCH (09:24)
[2021-10-10] MEDS: [UNRECOGNIZED DRUG - OTHER] IVPB SCH (09:25)
[2021-10-10] MEDS: ADMIXTURE FEE IVPB SCH (09:25)
[2021-10-10] MEDS: METHYLPREDNISOLONE SOD SUCC IVPB SCH (09:25)
[2021-10-10] MEDS: Sodium Chloride 0.65% Nasal 44 ML BOT EA NARE SCH ×3 (09:27→21:04)
[2021-10-10] MEDS: guaiFENesin/DM ER PO SCH ×3 (09:27→23:13)
[2021-10-10] MEDS: Apalutamide [Erleada] 60 MG Tablet PO SCH (09:27)
[2021-10-10] MEDS: HumaLOG 300 UNITS/3 ML VIAL SC PRN (15:56)
[2021-10-10] MEDS: AA 4.25 %/CALCIUM/LYTES/D5W 2,000 ML IV SCH (16:33)
[2021-10-11] MEDS: diphenhydrAMINE 25 MG CAP PO PRN (00:20)
[2021-10-11] MEDS ORDERED: Morphine 4 MG/ML VIAL SLOW IVP SCH (02:30)
[2021-10-11] MEDS: Acetaminophen 650 MG/20.3 ML UDCUP PO PRN (02:44)
[2021-10-11 05:11] LABS: Band 3 % (5-11); Eosinophils 1 % (0-10); Hemoglobin 10.3 g/dL (14.0-18.0); Hypochromia SLIGHT = 6-15 cells (100X) (0-5/hpf); Lymphocytes 5 % (21-51); MDiff Complete? YES; Mean Corpuscular HGB CONC 32.2 g/dL (32.0-36.0); Mean Corpuscular Hemoglobin 28.3 pg (27.0-31.0); Mean Corpuscular Volume 87.9 fL (78.0-98.0); Neutrophil 91 % (42-75); Platelet Morphology Comment PLT clumps seen-ADEQ; RBC Distribution Width 14.1 % (11.5-14.5); Red Blood Cell (RBC) Count 3.64 mill/uL (4.70-6.10); White Blood Cell (WBC) Count 8.4 thou/uL (4.8-10.8)
[2021-10-11 05:15] LABS: Vancomycin, Trough 11.5 ug/mL
[2021-10-11 05:17] LABS: ALT (SGPT) 10 U/L (8-55); AST (SGOT) 11 U/L (5-34); Albumin 2.3 g/dL (3.4-4.8); Alkaline Phosphatase 70 U/L (40-110); Anion Gap 12 mmol/L (10-20); BUN (Urea Nitrogen) 29 mg/dL (8.4-25.7); Bilirubin, Direct 0.2 mg/dL (0.1-0.3); Bilirubin, Total 0.3 mg/dL (0.2-1.2); Calc. Creatinine Clearance 92 mL/min (70-130); Calcium 8.3 mg/dL (7.8-10.44); Carbon Dioxide 20 mmol/L (23-31); Chloride 105 mmol/L (98-107); Glucose 196 mg/dL (80-115); Potassium 5.4 mmol/L (3.5-5.1); Protein, Total 5.6 g/dL (5.8-8.1); Sodium 132 mmol/L (136-145)
[2021-10-11 09:05] LABS: Potassium 5.6 mmol/L (3.5-5.1)
[2021-10-11] MEDS: BARICITINIB 2 MG TAB PO SCH (09:15)
[2021-10-11] MEDS: Enoxaparin Sodium 80 MG/0.8 ML SYRINGE SC SCH ×2 (09:16→21:07)
[2021-10-11] MEDS: Escitalopram Oxalate 10 mg Tablet PO SCH (09:16)
[2021-10-11] MEDS: Ascorbic Acid 500 mg Chewable Tablet PO SCH ×2 (09:16→21:07)
[2021-10-11] MEDS: Amiodarone 200 MG TAB PO SCH (09:16)
[2021-10-11] MEDS: Metoprolol Tartrate 25 MG TAB PO SCH ×2 (09:17→21:07)
[2021-10-11] MEDS: Aspirin 325 MG TAB PO SCH (09:17)
[2021-10-11] MEDS: guaiFENesin/DM ER PO SCH ×2 (09:51→21:10)
[2021-10-11] MEDS: Sodium Chloride 0.65% Nasal 44 ML BOT EA NARE SCH ×3 (09:52→21:10)
[2021-10-11] MEDS: Lantus 1000 UNITS/10 ML VIAL SC SCH (09:52)
[2021-10-11] MEDS: Apalutamide [Erleada] 60 MG Tablet PO SCH (09:52)
[2021-10-11] MEDS: HumaLOG 300 UNITS/3 ML VIAL SC PRN (10:01)
[2021-10-11] MEDS: [UNRECOGNIZED DRUG - OTHER] IVPB SCH (12:59)
[2021-10-11] MEDS: METHYLPREDNISOLONE SOD SUCC IVPB SCH (12:59)
[2021-10-11] MEDS: ADMIXTURE FEE IVPB SCH (12:59)
[2021-10-11] MEDS: AA 4.25 %/CALCIUM/LYTES/D5W 2,000 ML IV SCH (23:40)
[2021-10-12] MEDS: Acetaminophen 325 MG TAB PO PRN (04:34)
[2021-10-12 05:28] LABS: Actual Bicarbonate (HCO3v) 22 mEq/L (22-28); Calcium, Ionized (venous) 1.09 mmol/L (1.16-1.32); Chloride (VBG) 103 mmol/L (98-106); Hemoglobin (Hb) 11.9 g/dL (12.6-17.4); Potassium (VBG) 4.86 mmol/L (3.70-5.30); Sodium 132.9 mmol/L (133-146); pH (venous) 7.46 (7.32-7.43)
[2021-10-12 05:58] LABS: Anion Gap 14 mmol/L (10-20); BUN (Urea Nitrogen) 29 mg/dL (8.4-25.7); Calc. Creatinine Clearance 89 mL/min (70-130); Calcium 8.5 mg/dL (7.8-10.44); Carbon Dioxide 21 mmol/L (23-31); Chloride 103 mmol/L (98-107); Glucose 203 mg/dL (80-115); Potassium 4.9 mmol/L (3.5-5.1); Sodium 133 mmol/L (136-145)
[2021-10-12] MEDS: HumaLOG 300 UNITS/3 ML VIAL SC PRN ×4 (06:16→21:00)
[2021-10-12 06:21] LABS: Hemoglobin 11.4 g/dL (14.0-18.0); Mean Corpuscular HGB CONC 32.2 g/dL (32.0-36.0); Mean Corpuscular Hemoglobin 27.9 pg (27.0-31.0); Mean Corpuscular Volume 86.7 fL (78.0-98.0); Mean Platelet Volume 9.6 fL (7.4-10.4); RBC Distribution Width 14.2 % (11.5-14.5); Red Blood Cell (RBC) Count 4.09 mill/uL (4.70-6.10); White Blood Cell (WBC) Count 8.8 thou/uL (4.8-10.8)
[2021-10-12 06:22] LABS: Band 4 % (5-11); Lymphocytes 3 % (21-51); MDiff Complete? YES; Monocytes 10 % (0-10); Neutrophil 83 % (42-75); Platelet Clumps MODERATE; Platelet Morphology Comment PLT clumps seen-ADEQ
[2021-10-12] MEDS: Lantus 1000 UNITS/10 ML VIAL SC SCH (08:22)
[2021-10-12] MEDS: Enoxaparin Sodium 80 MG/0.8 ML SYRINGE SC SCH ×2 (08:23→19:46)
[2021-10-12] MEDS: Metoprolol Tartrate 25 MG TAB PO SCH ×2 (08:23→19:47)
[2021-10-12] MEDS: Aspirin 325 MG TAB PO SCH (08:24)
[2021-10-12] MEDS: guaiFENesin/DM ER PO SCH ×2 (08:24→19:47)
[2021-10-12] MEDS: Escitalopram Oxalate 10 mg Tablet PO SCH (08:24)
[2021-10-12] MEDS: BARICITINIB 2 MG TAB PO SCH (08:24)
[2021-10-12] MEDS: Ascorbic Acid 500 mg Chewable Tablet PO SCH ×2 (08:24→19:47)
[2021-10-12] MEDS: Amiodarone 200 MG TAB PO SCH (08:24)
[2021-10-12] MEDS: Apalutamide [Erleada] 60 MG Tablet PO SCH (08:25)
[2021-10-12] MEDS: Sodium Chloride 0.65% Nasal 44 ML BOT EA NARE SCH ×3 (08:25→21:51)
[2021-10-12] MEDS: Ondansetron PF 4 MG/2 ML Vial IVP PRN (10:09)
[2021-10-12] MEDS: ADMIXTURE FEE IVPB SCH ×2 (14:29→15:39)
[2021-10-12] MEDS: [UNRECOGNIZED DRUG - OTHER] IVPB SCH ×2 (14:29→15:39)
[2021-10-12] MEDS: METHYLPREDNISOLONE SOD SUCC IVPB SCH ×2 (14:29→15:39)
[2021-10-13] MEDS: AA 4.25 %/CALCIUM/LYTES/D5W 2,000 ML IV SCH (00:06)
[2021-10-13] MEDS: diphenhydrAMINE 25 MG CAP PO PRN ×2 (00:20→20:27)
[2021-10-13 04:18] LABS: Anion Gap 10 mmol/L (10-20); BUN (Urea Nitrogen) 32 mg/dL (8.4-25.7); Calc. Creatinine Clearance 89 mL/min (70-130); Calcium 8.6 mg/dL (7.8-10.44); Carbon Dioxide 24 mmol/L (23-31); Chloride 104 mmol/L (98-107); Glucose 174 mg/dL (80-115); Potassium 5.3 mmol/L (3.5-5.1); Sodium 133 mmol/L (136-145)
[2021-10-13] MEDS: HumaLOG 300 UNITS/3 ML VIAL SC PRN ×4 (06:01→20:32)
[2021-10-13 06:38] LABS: Band 5 % (5-11); Eosinophils 1 % (0-10); Hemoglobin 10.5 g/dL (14.0-18.0); Lymphocytes 8 % (21-51); MDiff Complete? YES; Mean Corpuscular Volume 87.9 fL (78.0-98.0); Mean Platelet Volume 9.9 fL (7.4-10.4); Monocytes 5 % (0-10); Neutrophil 81 % (42-75); Platelet Clumps MODERATE; Platelet Morphology Comment PLT clumps seen-ADEQ; RBC Distribution Width 14.4 % (11.5-14.5); Red Blood Cell (RBC) Count 3.63 mill/uL (4.70-6.10); White Blood Cell (WBC) Count 7.9 thou/uL (4.8-10.8)
[2021-10-13] MEDS: BARICITINIB 2 MG TAB PO SCH (09:45)
[2021-10-13] MEDS: Ascorbic Acid 500 mg Chewable Tablet PO SCH ×2 (09:45→20:26)
[2021-10-13] MEDS: Amiodarone 200 MG TAB PO SCH (09:45)
[2021-10-13] MEDS: Enoxaparin Sodium 80 MG/0.8 ML SYRINGE SC SCH ×2 (09:45→20:28)
[2021-10-13] MEDS: guaiFENesin/DM ER PO SCH ×2 (09:45→20:27)
[2021-10-13] MEDS: Metoprolol Tartrate 25 MG TAB PO SCH ×2 (09:45→20:26)
[2021-10-13] MEDS: Lantus 1000 UNITS/10 ML VIAL SC SCH (09:47)
[2021-10-13] MEDS: Aspirin 325 MG TAB PO SCH (09:47)
[2021-10-13] MEDS: Sodium Chloride 0.65% Nasal 44 ML BOT EA NARE SCH ×3 (10:07→20:42)
[2021-10-13] MEDS: Apalutamide [Erleada] 60 MG Tablet PO SCH (10:07)
[2021-10-13] MEDS: Escitalopram Oxalate 10 mg Tablet PO SCH (10:38)
[2021-10-13] MEDS: ADMIXTURE FEE IVPB SCH (15:41)
[2021-10-13] MEDS: METHYLPREDNISOLONE SOD SUCC IVPB SCH (15:41)
[2021-10-13] MEDS: [UNRECOGNIZED DRUG - OTHER] IVPB SCH (15:41)
[2021-10-13] MEDS ORDERED: METHYLPREDNISOLONE SOD SUCC IVPB SCH (16:00)
[2021-10-13] MEDS ORDERED: [UNRECOGNIZED DRUG - OTHER] IVPB SCH (16:00)
[2021-10-13] MEDS ORDERED: ADMIXTURE FEE IVPB SCH (16:00)
[2021-10-14] MEDS: LYTES IV SCH ×2 (01:02→01:19)
[2021-10-14] MEDS: D5W AA 4.25% IV SCH ×2 (01:02→01:19)
[2021-10-14] MEDS: diphenhydrAMINE 25 MG CAP PO PRN ×2 (01:38→21:20)
[2021-10-14 04:24] LABS: Anion Gap 16 mmol/L (10-20); BUN (Urea Nitrogen) 31 mg/dL (8.4-25.7); Calc. Creatinine Clearance 85 mL/min (70-130); Calcium 9.3 mg/dL (7.8-10.44); Carbon Dioxide 21 mmol/L (23-31); Chloride 100 mmol/L (98-107); Glucose 166 mg/dL (80-115); Potassium 5.3 mmol/L (3.5-5.1); Sodium 132 mmol/L (136-145)
[2021-10-14 04:43] LABS: Band 2 % (5-11); Hemoglobin 11.8 g/dL (14.0-18.0); Lymphocytes 9 % (21-51); MDiff Complete? YES; Mean Corpuscular HGB CONC 31.9 g/dL (32.0-36.0); Mean Corpuscular Hemoglobin 27.7 pg (27.0-31.0); Mean Platelet Volume 12.2 fL (7.4-10.4); Monocytes 10 % (0-10); Myelocyte 1 % (0-0); Neutrophil 78 % (42-75); Platelet Clumps MODERATE; Platelet Morphology Comment PLT clumps seen-ADEQ; RBC Distribution Width 14.7 % (11.5-14.5); Red Blood Cell (RBC) Count 4.25 mill/uL (4.70-6.10); White Blood Cell (WBC) Count 6.7 thou/uL (4.8-10.8)
[2021-10-14] MEDS: Amiodarone 200 MG TAB PO SCH (11:53)
[2021-10-14] MEDS: Ascorbic Acid 500 mg Chewable Tablet PO SCH ×2 (11:54→21:20)
[2021-10-14] MEDS: Enoxaparin Sodium 80 MG/0.8 ML SYRINGE SC SCH ×2 (11:54→21:21)
[2021-10-14] MEDS: Aspirin 325 MG TAB PO SCH (11:54)
[2021-10-14] MEDS: Escitalopram Oxalate 20 mg Tablet PO SCH (11:55)
[2021-10-14] MEDS: guaiFENesin/DM ER PO SCH ×2 (11:55→21:20)
[2021-10-14] MEDS: Lantus 1000 UNITS/10 ML VIAL SC SCH (11:55)
[2021-10-14] MEDS: methylPREDNISolone Sod Succ 40 MG VIAL IVP SCH (11:55)
[2021-10-14] MEDS: Sodium Chloride 0.65% Nasal 44 ML BOT EA NARE SCH ×3 (11:55→21:21)
[2021-10-14] MEDS: Metoprolol Tartrate 25 MG TAB PO SCH ×2 (11:55→21:20)
[2021-10-14] MEDS: Apalutamide [Erleada] 60 MG Tablet PO SCH (11:55)
[2021-10-14] MEDS: Acetaminophen 650 MG/20.3 ML UDCUP PO PRN (16:39)
[2021-10-14] MEDS: HumaLOG 300 UNITS/3 ML VIAL SC PRN ×2 (17:03→21:24)
[2021-10-14] MEDS ORDERED: Chloraseptic Spray 180 ml Bottle PO PRN (18:07)
[2021-10-14] MEDS: Lorazepam 2 MG/ML VIAL SLOW IVP PRN (21:39)
[2021-10-15] MEDS: HumaLOG 300 UNITS/3 ML VIAL SC PRN ×3 (05:29→20:37)
[2021-10-15] MEDS: AA 4.25 %/CALCIUM/LYTES/D5W 1,000 ML IV SCH ×2 (05:29→21:52)
[2021-10-15 06:54] LABS: Anion Gap 15 mmol/L (10-20); BUN (Urea Nitrogen) 36 mg/dL (8.4-25.7); Calc. Creatinine Clearance 78 mL/min (70-130); Calcium 8.9 mg/dL (7.8-10.44); Carbon Dioxide 20 mmol/L (23-31); Chloride 101 mmol/L (98-107); Glucose 171 mg/dL (80-115); Potassium 4.6 mmol/L (3.5-5.1); Sodium 131 mmol/L (136-145)
[2021-10-15 09:06] LABS: Eosinophils 2 % (0-10); Hemoglobin 11.9 g/dL (14.0-18.0); Large Platelets SLIGHT; Lymphocytes 8 % (21-51); MDiff Complete? YES; Mean Platelet Volume 10.3 fL (7.4-10.4); Monocytes 4 % (0-10); Neutrophil 86 % (42-75); Platelet Clumps MARKED; Platelet Morphology Comment PLT clumps seen-ADEQ; RBC Distribution Width 14.9 % (11.5-14.5); RBC Morphology Normal; Red Blood Cell (RBC) Count 4.11 mill/uL (4.70-6.10); White Blood Cell (WBC) Count 8.3 thou/uL (4.8-10.8)
[2021-10-15] MEDS: Metoprolol Tartrate 25 MG TAB PO SCH ×2 (09:18→20:36)
[2021-10-15] MEDS: Escitalopram Oxalate 20 mg Tablet PO SCH (09:18)
[2021-10-15] MEDS: Amiodarone 200 MG TAB PO SCH (09:19)
[2021-10-15] MEDS: methylPREDNISolone Sod Succ 40 MG VIAL IVP SCH (09:19)
[2021-10-15] MEDS: Aspirin 325 MG TAB PO SCH (09:19)
[2021-10-15] MEDS: Sodium Chloride 0.65% Nasal 44 ML BOT EA NARE SCH ×3 (09:19→21:37)
[2021-10-15] MEDS: Ascorbic Acid 500 mg Chewable Tablet PO SCH ×2 (09:19→20:36)
[2021-10-15] MEDS: guaiFENesin/DM ER PO SCH ×2 (09:19→20:37)
[2021-10-15] MEDS: Enoxaparin Sodium 80 MG/0.8 ML SYRINGE SC SCH ×2 (09:19→20:36)
[2021-10-15] MEDS: Apalutamide [Erleada] 60 MG Tablet PO SCH (09:21)
[2021-10-15] MEDS: Lantus 1000 UNITS/10 ML VIAL SC SCH (09:24)
[2021-10-15] MEDS: Lorazepam 2 MG/ML VIAL SLOW IVP PRN ×2 (09:47→20:37)
[2021-10-16] MEDS: Lorazepam 2 MG/ML VIAL SLOW IVP PRN ×2 (03:31→20:58)
[2021-10-16 04:10] LABS: Anion Gap 14 mmol/L (10-20); BUN (Urea Nitrogen) 37 mg/dL (8.4-25.7); Calc. Creatinine Clearance 91 mL/min (70-130); Calcium 9.1 mg/dL (7.8-10.44); Carbon Dioxide 21 mmol/L (23-31); Chloride 101 mmol/L (98-107); Glucose 217 mg/dL (80-115); Potassium 4.8 mmol/L (3.5-5.1); Sodium 131 mmol/L (136-145)
[2021-10-16 04:29] LABS: White Blood Cell (WBC) Count 7.8 thou/uL (4.8-10.8)
[2021-10-16 04:30] LABS: Band 1 % (5-11); Eosinophils 4 % (0-10); Hemoglobin 11.3 g/dL (14.0-18.0); Lymphocytes 13 % (21-51); MDiff Complete? YES; Mean Corpuscular HGB CONC 32.6 g/dL (32.0-36.0); Mean Corpuscular Hemoglobin 28.6 pg (27.0-31.0); Mean Corpuscular Volume 87.9 fL (78.0-98.0); Mean Platelet Volume 11.1 fL (7.4-10.4); Metamyelocyte 1 % (0-0); Monocytes 7 % (0-10); Neutrophil 73 % (42-75); Platelet Clumps MODERATE; Platelet Morphology Comment PLT clumps seen-ADEQ; Red Blood Cell (RBC) Count 3.96 mill/uL (4.70-6.10)
[2021-10-16] MEDS: HumaLOG 300 UNITS/3 ML VIAL SC PRN ×2 (06:16→20:46)
[2021-10-16] MEDS: guaiFENesin/DM ER PO SCH ×2 (09:53→20:46)
[2021-10-16] MEDS: Escitalopram Oxalate 20 mg Tablet PO SCH (09:53)
[2021-10-16] MEDS: Metoprolol Tartrate 25 MG TAB PO SCH ×2 (09:53→20:45)
[2021-10-16] MEDS: Ascorbic Acid 500 mg Chewable Tablet PO SCH ×2 (09:54→20:45)
[2021-10-16] MEDS: Aspirin 325 MG TAB PO SCH (09:54)
[2021-10-16] MEDS: Amiodarone 200 MG TAB PO SCH (09:54)
[2021-10-16] MEDS: Lantus 1000 UNITS/10 ML VIAL SC SCH (09:55)
[2021-10-16] MEDS: Enoxaparin Sodium 80 MG/0.8 ML SYRINGE SC SCH ×2 (09:56→20:46)
[2021-10-16] MEDS: Apalutamide [Erleada] 60 MG Tablet PO SCH (09:57)
[2021-10-16] MEDS: Sodium Chloride 0.65% Nasal 44 ML BOT EA NARE SCH ×3 (09:57→20:46)
[2021-10-16] MEDS: methylPREDNISolone Sod Succ 40 MG VIAL IVP SCH (09:57)
[2021-10-17] MEDS: AA 4.25 %/CALCIUM/LYTES/D5W 1,000 ML IV SCH (03:38)
[2021-10-17 03:56] LABS: Anion Gap 11 mmol/L (10-20); BUN (Urea Nitrogen) 39 mg/dL (8.4-25.7); Calc. Creatinine Clearance 83 mL/min (70-130); Carbon Dioxide 25 mmol/L (23-31); Chloride 101 mmol/L (98-107); Potassium 4.9 mmol/L (3.5-5.1); Sodium 132 mmol/L (136-145)
[2021-10-17 03:57] LABS: Calcium 9.1 mg/dL (7.8-10.44); Glucose 167 mg/dL (80-115)
[2021-10-17 05:36] LABS: Anisocytosis SLIGHT = 6-15 cells (100X) (0-5/hpf); Band 3 % (5-11); Eosinophils 2 % (0-10); Hemoglobin 10.7 g/dL (14.0-18.0); Lymphocytes 13 % (21-51); MDiff Complete? YES; Mean Corpuscular HGB CONC 31.8 g/dL (32.0-36.0); Mean Corpuscular Hemoglobin 27.9 pg (27.0-31.0); Mean Corpuscular Volume 87.5 fL (78.0-98.0); Mean Platelet Volume 11.9 fL (7.4-10.4); Monocytes 4 % (0-10); Neutrophil 78 % (42-75); Platelet Clumps MARKED; RBC Distribution Width 14.9 % (11.5-14.5); Red Blood Cell (RBC) Count 3.85 mill/uL (4.70-6.10); White Blood Cell (WBC) Count 6.7 thou/uL (4.8-10.8)
[2021-10-17] MEDS: HumaLOG 300 UNITS/3 ML VIAL SC PRN ×3 (05:54→21:01)
[2021-10-17] MEDS ORDERED: predniSONE 20 MG TAB PO SCH ×3 (08:00→12:45)
[2021-10-17] MEDS: Escitalopram Oxalate 20 mg Tablet PO SCH (10:07)
[2021-10-17] MEDS: Metoprolol Tartrate 25 MG TAB PO SCH ×2 (10:08→20:40)
[2021-10-17] MEDS: Enoxaparin Sodium 80 MG/0.8 ML SYRINGE SC SCH ×2 (10:09→20:47)
[2021-10-17] MEDS: Ascorbic Acid 500 mg Chewable Tablet PO SCH ×2 (10:09→20:28)
[2021-10-17] MEDS: Aspirin 325 MG TAB PO SCH (10:09)
[2021-10-17] MEDS: guaiFENesin/DM ER PO SCH ×2 (10:09→20:40)
[2021-10-17] MEDS: Amiodarone 200 MG TAB PO SCH (10:09)
[2021-10-17] MEDS: Apalutamide [Erleada] 60 MG Tablet PO SCH (10:10)
[2021-10-17] MEDS: Sodium Chloride 0.65% Nasal 44 ML BOT EA NARE SCH ×3 (10:10→20:40)
[2021-10-17] MEDS: Lantus 1000 UNITS/10 ML VIAL SC SCH (10:11)
[2021-10-17] MEDS: D5W-AA 4.25% with LYTES 1,000 ML IV SCH (22:32)
[2021-10-18] MEDS: Lorazepam 2 MG/ML VIAL SLOW IVP PRN ×2 (03:14→22:50)
[2021-10-18 04:21] LABS: Anion Gap 12 mmol/L (10-20); BUN (Urea Nitrogen) 32 mg/dL (8.4-25.7); Calc. Creatinine Clearance 91 mL/min (70-130); Calcium 9.1 mg/dL (7.8-10.44); Carbon Dioxide 22 mmol/L (23-31); Chloride 101 mmol/L (98-107); Glucose 236 mg/dL (80-115); Potassium 4.7 mmol/L (3.5-5.1); Sodium 130 mmol/L (136-145)
[2021-10-18 04:28] LABS: Band 1 % (5-11); Hemoglobin 11.7 g/dL (14.0-18.0); Lymphocytes 23 % (21-51); MDiff Complete? YES; Mean Corpuscular HGB CONC 31.9 g/dL (32.0-36.0); Mean Corpuscular Volume 90.9 fL (78.0-98.0); Mean Platelet Volume 8.1 fL (7.4-10.4); Monocytes 7 % (0-10); Myelocyte 1 % (0-0); Neutrophil 67 % (42-75); Platelet Count 276 thou/uL (130-400); RBC Distribution Width 15.2 % (11.5-14.5); Reactive Lymphocytes 1 % (0-10); Red Blood Cell (RBC) Count 4.05 mill/uL (4.70-6.10); White Blood Cell (WBC) Count 5.8 thou/uL (4.8-10.8)
[2021-10-18] MEDS: Metoprolol Tartrate 25 MG TAB PO SCH ×2 (09:30→20:28)
[2021-10-18] MEDS: predniSONE 20 MG TAB PO SCH (09:30)
[2021-10-18] MEDS: Amiodarone 200 MG TAB PO SCH (09:30)
[2021-10-18] MEDS: Aspirin 325 MG TAB PO SCH (09:30)
[2021-10-18] MEDS: Escitalopram Oxalate 20 mg Tablet PO SCH (09:31)
[2021-10-18] MEDS: Enoxaparin Sodium 80 MG/0.8 ML SYRINGE SC SCH ×2 (09:36→20:27)
[2021-10-18] MEDS: Ascorbic Acid 500 mg Chewable Tablet PO SCH ×2 (09:36→20:27)
[2021-10-18] MEDS: Lantus 1000 UNITS/10 ML VIAL SC SCH (09:37)
[2021-10-18] MEDS: guaiFENesin/DM ER PO SCH ×2 (09:37→20:28)
[2021-10-18] MEDS: Apalutamide [Erleada] 60 MG Tablet PO SCH (09:38)
[2021-10-18] MEDS: HumaLOG 300 UNITS/3 ML VIAL SC PRN ×3 (11:56→21:06)
[2021-10-18] MEDS: Sodium Chloride 0.65% Nasal 44 ML BOT EA NARE SCH ×3 (11:57→20:28)
[2021-10-18] MEDS: D5W-AA 4.25% with LYTES 1,000 ML IV SCH (14:19)
[2021-10-19] MEDS: D5W-AA 4.25% with LYTES 1,000 ML IV SCH ×2 (02:31→16:34)
[2021-10-19 04:21] LABS: Anion Gap 13 mmol/L (10-20); BUN (Urea Nitrogen) 33 mg/dL (8.4-25.7); Calc. Creatinine Clearance 87 mL/min (70-130); Calcium 9.1 mg/dL (7.8-10.44); Carbon Dioxide 25 mmol/L (23-31); Chloride 100 mmol/L (98-107); Glucose 151 mg/dL (80-115); Potassium 4.6 mmol/L (3.5-5.1); Sodium 133 mmol/L (136-145)
[2021-10-19 06:46] LABS: Band 1 % (5-11); Eosinophils 6 % (0-10); Lymphocytes 11 % (21-51); MDiff Complete? YES; Mean Corpuscular HGB CONC 32.3 g/dL (32.0-36.0); Mean Corpuscular Hemoglobin 28.8 pg (27.0-31.0); Mean Corpuscular Volume 89.2 fL (78.0-98.0); Mean Platelet Volume 7.5 fL (7.4-10.4); Monocytes 8 % (0-10); Neutrophil 74 % (42-75); Platelet Clumps MODERATE; Platelet Morphology Comment PLT clumps seen-ADEQ; RBC Distribution Width 15.3 % (11.5-14.5); RBC Morphology Normal; Red Blood Cell (RBC) Count 3.81 mill/uL (4.70-6.10); White Blood Cell (WBC) Count 6.6 thou/uL (4.8-10.8)
[2021-10-19] MEDS: Sodium Chloride 0.65% Nasal 44 ML BOT EA NARE SCH ×3 (08:48→20:34)
[2021-10-19] MEDS: predniSONE 20 MG TAB PO SCH (08:51)
[2021-10-19] MEDS: Aspirin 325 MG TAB PO SCH (08:52)
[2021-10-19] MEDS: Escitalopram Oxalate 20 mg Tablet PO SCH (08:52)
[2021-10-19] MEDS: Enoxaparin Sodium 80 MG/0.8 ML SYRINGE SC SCH ×2 (08:52→20:32)
[2021-10-19] MEDS: Ascorbic Acid 500 mg Chewable Tablet PO SCH ×2 (08:52→20:12)
[2021-10-19] MEDS: Amiodarone 200 MG TAB PO SCH (08:52)
[2021-10-19] MEDS: Lantus 1000 UNITS/10 ML VIAL SC SCH (08:53)
[2021-10-19] MEDS: guaiFENesin/DM ER PO SCH ×2 (08:53→20:12)
[2021-10-19] MEDS: Metoprolol Tartrate 25 MG TAB PO SCH ×2 (08:53→20:12)
[2021-10-19] MEDS ORDERED: GASTROGRAFIN 30 ML BOT ONE (10:17)
[2021-10-19] MEDS: Guaifenesin DM 100-10/5 ML UDCUP PO PRN (10:24)
[2021-10-19] MEDS: Apalutamide [Erleada] 60 MG Tablet PO SCH (16:34)
[2021-10-19] MEDS: HumaLOG 300 UNITS/3 ML VIAL SC PRN ×2 (16:35→20:33)
[2021-10-19] MEDS ORDERED: Sodium Chloride 0.45% 1,000 ML IV SCH (18:30)
[2021-10-19] MEDS: Lorazepam 2 MG/ML VIAL SLOW IVP PRN (18:33)
[2021-10-20 04:16] LABS: Anion Gap 11 mmol/L (10-20); BUN (Urea Nitrogen) 29 mg/dL (8.4-25.7); Calc. Creatinine Clearance 93 mL/min (70-130); Calcium 8.8 mg/dL (7.8-10.44); Carbon Dioxide 25 mmol/L (23-31); Chloride 99 mmol/L (98-107); Glucose 192 mg/dL (80-115); Potassium 4.3 mmol/L (3.5-5.1); Sodium 131 mmol/L (136-145)
[2021-10-20 04:46] LABS: Band 1 % (5-11); Eosinophils 5 % (0-10); Hemoglobin 11.1 g/dL (14.0-18.0); Lymphocytes 22 % (21-51); MDiff Complete? YES; Mean Corpuscular HGB CONC 32.5 g/dL (32.0-36.0); Mean Corpuscular Hemoglobin 28.6 pg (27.0-31.0); Mean Platelet Volume 12.4 fL (7.4-10.4); Monocytes 6 % (0-10); Myelocyte 1 % (0-0); Neutrophil 65 % (42-75); Platelet Morphology Comment PLT clumps seen-ADEQ; RBC Distribution Width 15.2 % (11.5-14.5); RBC Morphology Normal; Red Blood Cell (RBC) Count 3.87 mill/uL (4.70-6.10); White Blood Cell (WBC) Count 6.1 thou/uL (4.8-10.8)
[2021-10-20] MEDS: Amiodarone 200 MG TAB PO SCH (10:00)
[2021-10-20] MEDS: Enoxaparin Sodium 80 MG/0.8 ML SYRINGE SC SCH ×2 (10:00→20:26)
[2021-10-20] MEDS: Metoprolol Tartrate 25 MG TAB PO SCH ×2 (10:00→23:21)
[2021-10-20] MEDS: predniSONE 20 MG TAB PO SCH (10:00)
[2021-10-20] MEDS: Escitalopram Oxalate 20 mg Tablet PO SCH (10:00)
[2021-10-20] MEDS: guaiFENesin/DM ER PO SCH ×2 (10:00→20:27)
[2021-10-20] MEDS: Lantus 1000 UNITS/10 ML VIAL SC SCH (10:00)
[2021-10-20] MEDS: Aspirin 325 MG TAB PO SCH (12:15)
[2021-10-20] MEDS: Ascorbic Acid 500 mg Chewable Tablet PO SCH ×2 (12:15→20:27)
[2021-10-20] MEDS: Apalutamide [Erleada] 60 MG Tablet PO SCH (12:17)
[2021-10-20] MEDS: Sodium Chloride 0.65% Nasal 44 ML BOT EA NARE SCH ×3 (12:17→21:02)
[2021-10-20] MEDS: HumaLOG 300 UNITS/3 ML VIAL SC PRN ×3 (12:18→21:02)
[2021-10-20] MEDS: Lorazepam 2 MG/ML VIAL SLOW IVP PRN (23:20)
[2021-10-21 03:41] LABS: Anion Gap 11 mmol/L (10-20); BUN (Urea Nitrogen) 25 mg/dL (8.4-25.7); Calc. Creatinine Clearance 100 mL/min (70-130); Carbon Dioxide 25 mmol/L (23-31); Chloride 101 mmol/L (98-107); Glucose 145 mg/dL (80-115); Potassium 4.4 mmol/L (3.5-5.1); Sodium 133 mmol/L (136-145)
[2021-10-21 03:59] LABS: Band 2 % (5-11); Eosinophils 4 % (0-10); Hemoglobin 11.1 g/dL (14.0-18.0); Lymphocytes 13 % (21-51); MDiff Complete? YES; Mean Corpuscular HGB CONC 31.9 g/dL (32.0-36.0); Mean Corpuscular Hemoglobin 28.9 pg (27.0-31.0); Mean Corpuscular Volume 90.5 fL (78.0-98.0); Mean Platelet Volume 10.9 fL (7.4-10.4); Monocytes 11 % (0-10); Neutrophil 69 % (42-75); Platelet Morphology Comment PLT clumps seen-ADEQ; RBC Distribution Width 15.7 % (11.5-14.5); RBC Morphology Normal; Red Blood Cell (RBC) Count 3.84 mill/uL (4.70-6.10); White Blood Cell (WBC) Count 6.8 thou/uL (4.8-10.8)
[2021-10-21] MEDS: Enoxaparin Sodium 80 MG/0.8 ML SYRINGE SC SCH ×2 (09:01→20:48)
[2021-10-21] MEDS: Ascorbic Acid 500 mg Chewable Tablet PO SCH ×2 (09:01→21:21)
[2021-10-21] MEDS: Amiodarone 200 MG TAB PO SCH (09:01)
[2021-10-21] MEDS: Escitalopram Oxalate 20 mg Tablet PO SCH (09:01)
[2021-10-21] MEDS: predniSONE 20 MG TAB PO SCH (09:01)
[2021-10-21] MEDS: Aspirin 325 MG TAB PO SCH (09:01)
[2021-10-21] MEDS: Metoprolol Tartrate 25 MG TAB PO SCH ×2 (09:02→20:49)
[2021-10-21] MEDS: Sodium Chloride 0.65% Nasal 44 ML BOT EA NARE SCH ×3 (09:02→20:55)
[2021-10-21] MEDS: guaiFENesin/DM ER PO SCH ×2 (09:02→20:50)
[2021-10-21] MEDS: Lantus 1000 UNITS/10 ML VIAL SC SCH (09:02)
[2021-10-21] MEDS: Apalutamide [Erleada] 60 MG Tablet PO SCH (09:03)
[2021-10-21] MEDS: HumaLOG 300 UNITS/3 ML VIAL SC PRN ×3 (11:27→22:16)
[2021-10-21] MEDS ORDERED: Sodium Chloride 0.9% 1,000 ML IV SCH (13:45)
[2021-10-22] MEDS: Lorazepam 2 MG/ML VIAL SLOW IVP PRN ×2 (03:01→21:45)
[2021-10-22 04:03] LABS: Mean Corpuscular HGB CONC 32.4 g/dL (32.0-36.0); Mean Corpuscular Volume 89.5 fL (78.0-98.0); Platelet Count 82 thou/uL (130-400); RBC Distribution Width 15.7 % (11.5-14.5); Red Blood Cell (RBC) Count 3.79 mill/uL (4.70-6.10); White Blood Cell (WBC) Count 6.6 thou/uL (4.8-10.8)
[2021-10-22 04:19] LABS: Anion Gap 10 mmol/L (10-20); BUN (Urea Nitrogen) 22 mg/dL (8.4-25.7); Calc. Creatinine Clearance 94 mL/min (70-130); Calcium 8.9 mg/dL (7.8-10.44); Carbon Dioxide 27 mmol/L (23-31); Chloride 101 mmol/L (98-107); Glucose 157 mg/dL (80-115); Potassium 4.3 mmol/L (3.5-5.1); Sodium 134 mmol/L (136-145)
[2021-10-22 04:28] LABS: Eosinophils 8 % (0-10); Lymphocytes 18 % (21-51); MDiff Complete? YES; Monocytes 8 % (0-10); Myelocyte 1 % (0-0); Neutrophil 65 % (42-75); Platelet Morphology Comment PLT clumps seen-ADEQ; RBC Morphology Normal
[2021-10-22] MEDS: HumaLOG 300 UNITS/3 ML VIAL SC PRN ×4 (05:36→21:42)
[2021-10-22] MEDS ORDERED: Sodium Chloride 0.45 % 250 ML BAG IV SCH (09:00)
[2021-10-22] MEDS: predniSONE 20 MG TAB PO SCH (09:49)
[2021-10-22] MEDS: Ascorbic Acid 500 mg Chewable Tablet PO SCH ×2 (09:50→20:10)
[2021-10-22] MEDS: Amiodarone 200 MG TAB PO SCH (09:50)
[2021-10-22] MEDS: Enoxaparin Sodium 80 MG/0.8 ML SYRINGE SC SCH (09:50)
[2021-10-22] MEDS: Escitalopram Oxalate 20 mg Tablet PO SCH (09:50)
[2021-10-22] MEDS: Aspirin 325 MG TAB PO SCH (09:50)
[2021-10-22] MEDS: Sodium Chloride 0.65% Nasal 44 ML BOT EA NARE SCH ×2 (09:51→17:13)
[2021-10-22] MEDS: Metoprolol Tartrate 25 MG TAB PO SCH ×2 (09:51→20:10)
[2021-10-22] MEDS: Apalutamide [Erleada] 60 MG Tablet PO SCH (09:51)
[2021-10-22] MEDS: Lantus 1000 UNITS/10 ML VIAL SC SCH (09:51)
[2021-10-22] MEDS: guaiFENesin/DM ER PO SCH ×2 (09:51→20:10)
[2021-10-22] MEDS: Enoxaparin Sodium 60 MG/0.6 ML SYRINGE SC SCH ×3 (11:48→20:09)
[2021-10-23] MEDS: Sodium Chloride 0.65% Nasal 44 ML BOT EA NARE SCH ×4 (01:34→21:51)
[2021-10-23 04:06] LABS: Anion Gap 12 mmol/L (10-20); BUN (Urea Nitrogen) 23 mg/dL (8.4-25.7); Calc. Creatinine Clearance 86 mL/min (70-130); Calcium 9.4 mg/dL (7.8-10.44); Carbon Dioxide 29 mmol/L (23-31); Chloride 98 mmol/L (98-107); Glucose 133 mg/dL (80-115); Potassium 4.3 mmol/L (3.5-5.1); Sodium 135 mmol/L (136-145)
[2021-10-23 04:09] LABS: Anisocytosis SLIGHT = 6-15 cells (100X) (0-5/hpf); Band 6 % (5-11); Eosinophils 10 % (0-10); Hemoglobin 11.2 g/dL (14.0-18.0); Hypochromia MODERATE=16-30 cells (100X) (0-5/hpf); Lymphocytes 18 % (21-51); MDiff Complete? YES; Mean Corpuscular HGB CONC 31.2 g/dL (32.0-36.0); Mean Corpuscular Hemoglobin 28.3 pg (27.0-31.0); Mean Corpuscular Volume 90.7 fL (78.0-98.0); Mean Platelet Volume 10.8 fL (7.4-10.4); Monocytes 6 % (0-10); Myelocyte 2 % (0-0); Neutrophil 58 % (42-75); Platelet Morphology Comment PLT clumps seen-ADEQ; Polychromasia SLIGHT = 2-3 cells (100X) (0-2/hpf); RBC Distribution Width 16.1 % (11.5-14.5); Red Blood Cell (RBC) Count 3.94 mill/uL (4.70-6.10); Schistocytes SLIGHT = 2-5 cells (100X) (0-1/hpf); White Blood Cell (WBC) Count 5.8 thou/uL (4.8-10.8)
[2021-10-23] MEDS: HumaLOG 300 UNITS/3 ML VIAL SC PRN ×2 (06:36→20:06)
[2021-10-23] MEDS: Amiodarone 200 MG TAB PO SCH (09:29)
[2021-10-23] MEDS: predniSONE 20 MG TAB PO SCH (09:29)
[2021-10-23] MEDS: Enoxaparin Sodium 60 MG/0.6 ML SYRINGE SC SCH ×2 (09:30→20:05)
[2021-10-23] MEDS: Aspirin 325 MG TAB PO SCH (09:30)
[2021-10-23] MEDS: Escitalopram Oxalate 20 mg Tablet PO SCH (09:30)
[2021-10-23] MEDS: guaiFENesin/DM ER PO SCH ×2 (09:30→20:05)
[2021-10-23] MEDS: Metoprolol Tartrate 25 MG TAB PO SCH ×2 (09:31→20:06)
[2021-10-23] MEDS: Ascorbic Acid 500 mg Chewable Tablet PO SCH ×2 (09:32→20:06)
[2021-10-23] MEDS: Apalutamide [Erleada] 60 MG Tablet PO SCH (09:32)
[2021-10-23] MEDS: Lantus 1000 UNITS/10 ML VIAL SC SCH (09:42)
[2021-10-23 10:52] LABS: Actual Bicarbonate (HCO3a) 21.7 mEq/L (22-28); Analyzer IN Cardio OR; Base Excess (BEa) -4.6 mEq/L (-2.0 to +3.0); CO2 Tension 45.6 mmHg (35.0-45.0); Calcium, Ionized (arterial) 1.13 mmol/L (1.12-1.30); Carboxyhemoglobin (COHb) 0.3 gm% (0.0-3.0); Hemoglobin (Hb) 9.2 g/dL (14.0-18.0)
[2021-10-23 10:53] LABS: Actual Bicarbonate (HCO3a) 25.5 mEq/L (22-28); Analyzer IN Cardio OR; Base Excess (BEa) -0.8 mEq/L (-2.0 to +3.0); CO2 Tension 51.8 mmHg (35.0-45.0); Calcium, Ionized (arterial) 1.12 mmol/L (1.12-1.30); Carboxyhemoglobin (COHb) 0.4 gm% (0.0-3.0); Hemoglobin (Hb) 7.1 g/dL (14.0-18.0); O2 Tension (PaO2), arterial 98.6 mmHg (> 80.0); Potassium - ABG Lab 3.29 mmol/L (3.70-5.30); pH, Arterial 7.31 (7.35-7.45)
[2021-10-23 10:53] LABS: Actual Bicarbonate (HCO3a) 21.3 mEq/L (22-28); Analyzer IN Cardio OR; Base Excess (BEa) -3.6 mEq/L (-2.0 to +3.0); CO2 Tension 38.3 mmHg (35.0-45.0); Calcium, Ionized (arterial) 1.02 mmol/L (1.12-1.30); O2 Tension (PaO2), arterial 140.9 mmHg (> 80.0); pH, Arterial 7.36 (7.35-7.45)
[2021-10-23 10:53] LABS: Actual Bicarbonate (HCO3a) 23.4 mEq/L (22-28); Analyzer IN Cardio OR; Base Excess (BEa) -2.3 mEq/L (-2.0 to +3.0); CO2 Tension 44.6 mmHg (35.0-45.0); Carboxyhemoglobin (COHb) 1.1 gm% (0.0-3.0); Hemoglobin (Hb) 7.5 g/dL (14.0-18.0); O2 Tension (PaO2), arterial 370.3 mmHg (> 80.0); Potassium - ABG Lab 3.67 mmol/L (3.70-5.30); pH, Arterial 7.34 (7.35-7.45)
[2021-10-23 10:54] LABS: Puncture Site Arterial Line
[2021-10-23 10:55] LABS: Puncture Site Arterial Line
[2021-10-23 10:55] LABS: Puncture Site Arterial Line
[2021-10-23 10:56] LABS: Puncture Site Arterial Line
[2021-10-23] MEDS: Sodium Chloride 0.9% 1,000 ML IV SCH (14:48)
[2021-10-23] MEDS: Lorazepam 2 MG/ML VIAL SLOW IVP PRN (21:50)
[2021-10-24] MEDS: Sodium Chloride 0.9% 1,000 ML IV SCH ×3 (01:24→21:36)
[2021-10-24 04:29] LABS: Anion Gap 11 mmol/L (10-20); BUN (Urea Nitrogen) 22 mg/dL (8.4-25.7); Calc. Creatinine Clearance 92 mL/min (70-130); Calcium 8.7 mg/dL (7.8-10.44); Carbon Dioxide 31 mmol/L (23-31); Chloride 99 mmol/L (98-107); Glucose 184 mg/dL (80-115); Potassium 4.5 mmol/L (3.5-5.1); Sodium 136 mmol/L (136-145)
[2021-10-24 05:26] LABS: Anisocytosis SLIGHT = 6-15 cells (100X) (0-5/hpf); Band 3 % (5-11); Eosinophils 11 % (0-10); Hemoglobin 10.4 g/dL (14.0-18.0); Hypochromia SLIGHT = 6-15 cells (100X) (0-5/hpf); Lymphocytes 17 % (21-51); MDiff Complete? YES; Mean Corpuscular HGB CONC 32.8 g/dL (32.0-36.0); Mean Corpuscular Hemoglobin 29.7 pg (27.0-31.0); Mean Corpuscular Volume 90.6 fL (78.0-98.0); Mean Platelet Volume 12.8 fL (7.4-10.4); Monocytes 14 % (0-10); Neutrophil 54 % (42-75); Nucleated RBC 3 % (0); Platelet Morphology Comment PLT clumps seen-ADEQ; Polychromasia SLIGHT = 2-3 cells (100X) (0-2/hpf); RBC Distribution Width 16.1 % (11.5-14.5); White Blood Cell (WBC) Count 6.7 thou/uL (4.8-10.8)
[2021-10-24] MEDS: HumaLOG 300 UNITS/3 ML VIAL SC PRN ×3 (06:37→21:36)
[2021-10-24] MEDS: Escitalopram Oxalate 20 mg Tablet PO SCH (08:12)
[2021-10-24] MEDS: Metoprolol Tartrate 25 MG TAB PO SCH ×2 (08:12→21:34)
[2021-10-24] MEDS: Aspirin 325 MG TAB PO SCH (08:12)
[2021-10-24] MEDS: Enoxaparin Sodium 60 MG/0.6 ML SYRINGE SC SCH ×2 (08:13→21:36)
[2021-10-24] MEDS: Ascorbic Acid 500 mg Chewable Tablet PO SCH ×2 (08:13→21:34)
[2021-10-24] MEDS: Amiodarone 200 MG TAB PO SCH (08:13)
[2021-10-24] MEDS: Lantus 1000 UNITS/10 ML VIAL SC SCH (08:13)
[2021-10-24] MEDS: guaiFENesin/DM ER PO SCH ×2 (08:13→21:36)
[2021-10-24] MEDS: predniSONE 20 MG TAB PO SCH (08:13)
[2021-10-24] MEDS: Apalutamide [Erleada] 60 MG Tablet PO SCH (08:14)
[2021-10-24] MEDS: Sodium Chloride 0.65% Nasal 44 ML BOT EA NARE SCH ×3 (08:14→22:41)
[2021-10-24] MEDS ORDERED: Amiodarone 200 MG TAB PO SCH (13:15)
[2021-10-24] MEDS ORDERED: Valsartan 80 MG TAB PO SCH (13:15)
[2021-10-24] MEDS: Lorazepam 2 MG/ML VIAL SLOW IVP PRN (21:40)
[2021-10-25 05:11] LABS: Band 2 % (5-11); Eosinophils 2 % (0-10); Hemoglobin 11.4 g/dL (14.0-18.0); Lymphocytes 12 % (21-51); MDiff Complete? YES; Mean Corpuscular HGB CONC 32.2 g/dL (32.0-36.0); Mean Corpuscular Hemoglobin 29.5 pg (27.0-31.0); Mean Corpuscular Volume 91.6 fL (78.0-98.0); Mean Platelet Volume 13.2 fL (7.4-10.4); Monocytes 14 % (0-10); Neutrophil 70 % (42-75); Nucleated RBC 1 % (0); Platelet Count 53 thou/uL (130-400); Platelet Morphology Comment PLT clumps seen-ADEQ; RBC Distribution Width 15.9 % (11.5-14.5); RBC Morphology Normal; Red Blood Cell (RBC) Count 3.85 mill/uL (4.70-6.10); White Blood Cell (WBC) Count 6.7 thou/uL (4.8-10.8)
[2021-10-25 05:19] LABS: Anion Gap 9 mmol/L (10-20); BUN (Urea Nitrogen) 17 mg/dL (8.4-25.7); Calc. Creatinine Clearance 93 mL/min (70-130); Calcium 8.5 mg/dL (7.8-10.44); Carbon Dioxide 29 mmol/L (23-31); Chloride 102 mmol/L (98-107); Glucose 91 mg/dL (80-115); Potassium 4.4 mmol/L (3.5-5.1); Sodium 136 mmol/L (136-145)
[2021-10-25 08:50] VITALS: BMI 20.9
[2021-10-25] MEDS ORDERED: Valsartan 80 MG TAB PO SCH (09:00)
[2021-10-25] MEDS: Sodium Chloride 0.9% 1,000 ML IV SCH ×3 (11:30→20:14)
[2021-10-25] MEDS: predniSONE 20 MG TAB PO SCH (11:31)
[2021-10-25] MEDS: Escitalopram Oxalate 20 mg Tablet PO SCH (11:31)
[2021-10-25] MEDS: Aspirin 325 MG TAB PO SCH (11:31)
[2021-10-25] MEDS: Ascorbic Acid 500 mg Chewable Tablet PO SCH ×2 (11:31→20:14)
[2021-10-25] MEDS: Amiodarone 200 MG TAB PO SCH (11:31)
[2021-10-25] MEDS: guaiFENesin/DM ER PO SCH ×2 (11:32→20:15)
[2021-10-25] MEDS: Apalutamide [Erleada] 60 MG Tablet PO SCH (11:32)
[2021-10-25] MEDS: Lantus 1000 UNITS/10 ML VIAL SC SCH (11:32)
[2021-10-25] MEDS: Sodium Chloride 0.65% Nasal 44 ML BOT EA NARE SCH ×3 (11:32→20:15)
[2021-10-25] MEDS: Metoprolol Tartrate 25 MG TAB PO SCH ×2 (11:32→20:14)
[2021-10-25] MEDS: Valsartan 80 MG TAB PO SCH (11:33)
[2021-10-25] MEDS: Enoxaparin Sodium 60 MG/0.6 ML SYRINGE SC SCH ×2 (13:05→20:14)
[2021-10-25] MEDS: Apixaban 2.5 MG TAB PO SCH (22:29)
[2021-10-26] MEDS: Acetaminophen 650 MG/20.3 ML UDCUP PO PRN ×2 (01:17→19:27)
[2021-10-26] MEDS: diphenhydrAMINE 25 MG CAP PO PRN ×2 (01:18→19:28)
[2021-10-26 04:23] LABS: Anion Gap 10 mmol/L (10-20); BUN (Urea Nitrogen) 15 mg/dL (8.4-25.7); Calc. Creatinine Clearance 97 mL/min (70-130); Calcium 8.1 mg/dL (7.8-10.44); Carbon Dioxide 27 mmol/L (23-31); Chloride 104 mmol/L (98-107); Glucose 167 mg/dL (80-115); Sodium 137 mmol/L (136-145)
[2021-10-26 04:44] LABS: Band 1 % (5-11); Eosinophils 11 % (0-10); Hemoglobin 10.4 g/dL (14.0-18.0); Lymphocytes 22 % (21-51); MDiff Complete? YES; Mean Corpuscular HGB CONC 32.7 g/dL (32.0-36.0); Mean Corpuscular Hemoglobin 29.6 pg (27.0-31.0); Mean Corpuscular Volume 90.5 fL (78.0-98.0); Mean Platelet Volume 10.9 fL (7.4-10.4); Monocytes 6 % (0-10); Neutrophil 60 % (42-75); Platelet Clumps MARKED; Platelet Morphology Comment PLT clumps seen-ADEQ; Red Blood Cell (RBC) Count 3.52 mill/uL (4.70-6.10); White Blood Cell (WBC) Count 5.4 thou/uL (4.8-10.8)
[2021-10-26] MEDS: Sodium Chloride 0.9% 1,000 ML IV SCH (05:32)
[2021-10-26] MEDS: Ascorbic Acid 500 mg Chewable Tablet PO SCH ×2 (08:01→19:28)
[2021-10-26] MEDS: Aspirin 325 MG TAB PO SCH (08:01)
[2021-10-26] MEDS: Valsartan 80 MG TAB PO SCH (08:01)
[2021-10-26] MEDS: Apixaban 2.5 MG TAB PO SCH ×2 (08:01→19:29)
[2021-10-26] MEDS: predniSONE 20 MG TAB PO SCH (08:01)
[2021-10-26] MEDS: Lantus 1000 UNITS/10 ML VIAL SC SCH (08:02)
[2021-10-26] MEDS: guaiFENesin/DM ER PO SCH ×2 (08:02→19:29)
[2021-10-26] MEDS: Metoprolol Tartrate 25 MG TAB PO SCH ×2 (08:02→19:28)
[2021-10-26] MEDS: Escitalopram Oxalate 20 mg Tablet PO SCH (08:02)
[2021-10-26] MEDS: Amiodarone 200 MG TAB PO SCH (08:02)
[2021-10-26] MEDS: Apalutamide [Erleada] 60 MG Tablet PO SCH (08:02)
[2021-10-26] MEDS: Sodium Chloride 0.65% Nasal 44 ML BOT EA NARE SCH ×3 (08:03→19:29)
[2021-10-26] MEDS: HumaLOG 300 UNITS/3 ML VIAL SC PRN (17:12)
[2021-10-27] MEDS: Escitalopram Oxalate 20 mg Tablet PO SCH (08:49)
[2021-10-27] MEDS: predniSONE 20 MG TAB PO SCH (08:49)
[2021-10-27] MEDS: Valsartan 80 MG TAB PO SCH (08:50)
[2021-10-27] MEDS: Guaifenesin DM 100-10/5 ML UDCUP PO PRN (08:52)
[2021-10-27] MEDS: Aspirin 325 MG TAB PO SCH (08:52)
[2021-10-27] MEDS: Metoprolol Tartrate 25 MG TAB PO SCH ×2 (08:53→20:35)
[2021-10-27] MEDS: Ascorbic Acid 500 mg Chewable Tablet PO SCH ×2 (08:54→20:35)
[2021-10-27] MEDS: Amiodarone 200 MG TAB PO SCH (08:54)
[2021-10-27] MEDS: Apixaban 2.5 MG TAB PO SCH ×2 (08:55→20:35)
[2021-10-27] MEDS: guaiFENesin/DM ER PO SCH ×2 (08:56→20:35)
[2021-10-27] MEDS: Lantus 1000 UNITS/10 ML VIAL SC SCH (08:56)
[2021-10-27] MEDS: Apalutamide [Erleada] 60 MG Tablet PO SCH (09:00)
[2021-10-27] MEDS: Sodium Chloride 0.65% Nasal 44 ML BOT EA NARE SCH ×3 (09:00→20:36)
[2021-10-27 09:48] LABS: Anion Gap 12 mmol/L (10-20); BUN (Urea Nitrogen) 11 mg/dL (8.4-25.7); Calc. Creatinine Clearance 91 mL/min (70-130); Calcium 8.5 mg/dL (7.8-10.44); Carbon Dioxide 25 mmol/L (23-31); Chloride 103 mmol/L (98-107); Glucose 208 mg/dL (80-115); Sodium 136 mmol/L (136-145)
[2021-10-27 10:40] LABS: Eosinophils 8 % (0-10); Hemoglobin 12.1 g/dL (14.0-18.0); Lymphocytes 21 % (21-51); MDiff Complete? YES; Mean Corpuscular HGB CONC 31.7 g/dL (32.0-36.0); Mean Corpuscular Hemoglobin 28.9 pg (27.0-31.0); Mean Corpuscular Volume 91.2 fL (78.0-98.0); Mean Platelet Volume 8.6 fL (7.4-10.4); Monocytes 5 % (0-10); Neutrophil 66 % (42-75); Platelet Clumps MARKED; Platelet Morphology Comment PLT clumps seen-ADEQ; RBC Distribution Width 16.2 % (11.5-14.5); Red Blood Cell (RBC) Count 4.19 mill/uL (4.70-6.10); White Blood Cell (WBC) Count 7.1 thou/uL (4.8-10.8)
[2021-10-27] MEDS: HumaLOG 300 UNITS/3 ML VIAL SC PRN ×2 (14:50→17:25)
[2021-10-27] MEDS ORDERED: Loratadine 10 MG TAB PO PRN (14:57)
[2021-10-27] MEDS ORDERED: Polyvinyl Alcohol 1.4%/Povidone 0.6% Opth Drops EA EYE PRN (14:57)
[2021-10-27] MEDS: diphenhydrAMINE 25 MG CAP PO PRN (20:36)
[2021-10-27] MEDS: Acetaminophen 325 MG TAB PO PRN (20:36)
[2021-10-28 08:20] LABS: Anion Gap 9 mmol/L (10-20); BUN (Urea Nitrogen) 15 mg/dL (8.4-25.7); Calc. Creatinine Clearance 91 mL/min (70-130); Calcium 8.6 mg/dL (7.8-10.44); Carbon Dioxide 31 mmol/L (23-31); Chloride 104 mmol/L (98-107); Glucose 222 mg/dL (80-115); Potassium 3.9 mmol/L (3.5-5.1); Sodium 140 mmol/L (136-145)
[2021-10-28 08:29] LABS: Hemoglobin 11.4 g/dL (14.0-18.0); Mean Corpuscular HGB CONC 32.3 g/dL (32.0-36.0); Mean Corpuscular Hemoglobin 29.5 pg (27.0-31.0); Mean Corpuscular Volume 91.5 fL (78.0-98.0); Mean Platelet Volume 10.3 fL (7.4-10.4); RBC Distribution Width 16.2 % (11.5-14.5); Red Blood Cell (RBC) Count 3.85 mill/uL (4.70-6.10); White Blood Cell (WBC) Count 6.7 thou/uL (4.8-10.8)
[2021-10-28 08:30] LABS: Band 8 % (5-11); Eosinophils 12 % (0-10); Lymphocytes 11 % (21-51); MDiff Complete? YES; Monocytes 2 % (0-10); Neutrophil 67 % (42-75); Platelet Clumps MARKED; Platelet Morphology Comment PLT clumps seen-ADEQ
[2021-10-28] MEDS: Amiodarone 200 MG TAB PO SCH (09:16)
[2021-10-28] MEDS: predniSONE 20 MG TAB PO SCH (09:16)
[2021-10-28] MEDS: Aspirin 325 MG TAB PO SCH (09:17)
[2021-10-28] MEDS: Ascorbic Acid 500 mg Chewable Tablet PO SCH ×2 (09:17→20:02)
[2021-10-28] MEDS: Escitalopram Oxalate 20 mg Tablet PO SCH (09:17)
[2021-10-28] MEDS: Apixaban 2.5 MG TAB PO SCH ×2 (09:17→20:02)
[2021-10-28] MEDS: guaiFENesin/DM ER PO SCH ×2 (09:18→20:15)
[2021-10-28] MEDS: Metoprolol Tartrate 25 MG TAB PO SCH ×2 (09:19→20:02)
[2021-10-28] MEDS: Lantus 1000 UNITS/10 ML VIAL SC SCH (09:19)
[2021-10-28] MEDS: Apalutamide [Erleada] 60 MG Tablet PO SCH (09:20)
[2021-10-28] MEDS: Valsartan 80 MG TAB PO SCH (09:20)
[2021-10-28] MEDS: HumaLOG 300 UNITS/3 ML VIAL SC PRN ×2 (11:23→20:05)
[2021-10-28] MEDS: Sodium Chloride 0.65% Nasal 44 ML BOT EA NARE SCH ×3 (11:28→20:15)
[2021-10-28] MEDS: diphenhydrAMINE 25 MG CAP PO PRN (20:02)
[2021-10-28] MEDS: Acetaminophen 650 MG/20.3 ML UDCUP PO PRN (20:02)
[2021-10-29] MEDS: Amiodarone 200 MG TAB PO SCH (09:07)
[2021-10-29] MEDS: Apixaban 2.5 MG TAB PO SCH ×2 (09:07→20:38)
[2021-10-29] MEDS: Aspirin 325 MG TAB PO SCH (09:07)
[2021-10-29] MEDS: predniSONE 20 MG TAB PO SCH (09:07)
[2021-10-29] MEDS: Ascorbic Acid 500 mg Chewable Tablet PO SCH ×2 (09:07→20:38)
[2021-10-29] MEDS: Escitalopram Oxalate 20 mg Tablet PO SCH (09:08)
[2021-10-29] MEDS: Lantus 1000 UNITS/10 ML VIAL SC SCH (09:08)
[2021-10-29] MEDS: Metoprolol Tartrate 25 MG TAB PO SCH ×2 (09:08→20:38)
[2021-10-29] MEDS: guaiFENesin/DM ER PO SCH ×2 (09:08→20:39)
[2021-10-29] MEDS: Sodium Chloride 0.65% Nasal 44 ML BOT EA NARE SCH ×3 (09:09→20:39)
[2021-10-29] MEDS: Valsartan 80 MG TAB PO SCH (09:09)
[2021-10-29] MEDS: Apalutamide [Erleada] 60 MG Tablet PO SCH (09:11)
[2021-10-29] MEDS: Acetaminophen 650 MG/20.3 ML UDCUP PO PRN ×2 (09:39→20:37)
[2021-10-29] MEDS: HumaLOG 300 UNITS/3 ML VIAL SC PRN (16:43)
[2021-10-29] MEDS: diphenhydrAMINE 25 MG CAP PO PRN (20:38)
[2021-10-30 07:59] VITALS: TEMP 97
[2021-10-30] MEDS ORDERED: Empagliflozin 10 MG TAB PO SCH (09:00)
[2021-10-30] MEDS: Valsartan 80 MG TAB PO SCH (09:50)
[2021-10-30] MEDS: Aspirin 325 MG TAB PO SCH (09:50)
[2021-10-30] MEDS: Ascorbic Acid 500 mg Chewable Tablet PO SCH (09:50)
[2021-10-30] MEDS: Metoprolol Tartrate 25 MG TAB PO SCH (09:50)
[2021-10-30] MEDS: Escitalopram Oxalate 20 mg Tablet PO SCH (09:50)
[2021-10-30] MEDS: Amiodarone 200 MG TAB PO SCH (09:50)
[2021-10-30] MEDS: guaiFENesin/DM ER PO SCH (09:51)
[2021-10-30] MEDS: predniSONE 20 MG TAB PO SCH (09:51)
[2021-10-30] MEDS: Apixaban 2.5 MG TAB PO SCH (09:51)
[2021-10-30] MEDS: Sodium Chloride 0.65% Nasal 44 ML BOT EA NARE SCH (09:53)
[2021-10-30] MEDS: Apalutamide [Erleada] 60 MG Tablet PO SCH (09:57)
[2021-10-30] MEDS: Lantus 1000 UNITS/10 ML VIAL SC SCH (10:00)
[2021-10-30 11:04] VITALS: BP 128/80
== END 2021-10-30 11:56 | DRG 233 ==
LOC: ERS 13:25 → CCU 14:04 → CCL 14:04 → CCU 14:33 → 2NO 09-18 15:21 → 2SW 09-23 22:12 → CCU 09-26 12:35 → IMCU/EMU 10-11 11:58
PROVIDERS: ADMIT Internal Medicine Cardiovascular Disease; ATTEND Internal Medicine Cardiovascular Disease
PROC: 4A023N7 Measurement of Cardiac Sampling and Pressure, Left Heart, Percutaneous Approach (ICD-10-PCS; 2021-09-15)
PROC: B2111ZZ Fluoroscopy of Multiple Coronary Arteries using Low Osmolar Contrast (ICD-10-PCS; 2021-09-15)
PROC: B2151ZZ Fluoroscopy of Left Heart using Low Osmolar Contrast (ICD-10-PCS; 2021-09-15)
PROC: 5A2204Z Restoration of Cardiac Rhythm, Single (ICD-10-PCS; 2021-09-15)
PROC: 0W9930Z Drainage of Right Pleural Cavity with Drainage Device, Percutaneous Approach (ICD-10-PCS; 2021-09-15)
PROC: 02HV33Z Insertion of Infusion Device into Superior Vena Cava, Percutaneous Approach (ICD-10-PCS; 2021-09-15)
PROC: 02100Z9 Bypass Coronary Artery, One Artery from Left Internal Mammary, Open Approach (ICD-10-PCS; principal; 2021-09-16)
PROC: 021109W Bypass Coronary Artery, Two Arteries from Aorta with Autologous Venous Tissue, Open Approach (ICD-10-PCS; 2021-09-16)
PROC: 06BQ4ZZ Excision of Left Saphenous Vein, Percutaneous Endoscopic Approach (ICD-10-PCS; 2021-09-16)
PROC: 5A1221Z Performance of Cardiac Output, Continuous (ICD-10-PCS; 2021-09-16)
PROC: 3E033XZ Introduction of Vasopressor into Peripheral Vein, Percutaneous Approach (ICD-10-PCS; 2021-09-16)
PROC: 30233N1 Transfusion of Nonautologous Red Blood Cells into Peripheral Vein, Percutaneous Approach (ICD-10-PCS; 2021-09-17)
PROC: XW0DXM6 Introduction of Baricitinib into Mouth and Pharynx, External Approach, New Technology Group 6 (ICD-10-PCS; 2021-09-26)
PROC: 5A09557 Assistance with Respiratory Ventilation, Greater than 96 Consecutive Hours, Continuous Positive Airway Pressure (ICD-10-PCS; 2021-09-26)
PROC: 0D9670Z Drainage of Stomach with Drainage Device, Via Natural or Artificial Opening (ICD-10-PCS; 2021-09-26)
PROC: 3E0333Z Introduction of Anti-inflammatory into Peripheral Vein, Percutaneous Approach (ICD-10-PCS; 2021-09-27)
DX: I49.01 Ventricular fibrillation (principal); I22.9 Subsequent ST elevation (STEMI) myocardial infarction of unspecified site; U07.1 COVID-19; J12.82 Pneumonia due to coronavirus disease 2019; I50.21 Acute systolic (congestive) heart failure; J96.01 Acute respiratory failure with hypoxia; N17.9 Acute kidney failure, unspecified; I13.0 Hypertensive heart and chronic kidney disease with heart failure and stage 1 through stage 4 chronic kidney disease, or unspecified chronic kidney disease; E87.1 Hypo-osmolality and hyponatremia; E87.2 Acidosis; S27.329A Contusion of lung, unspecified, initial encounter; J98.11 Atelectasis; E46 Unspecified protein-calorie malnutrition; G72.81 Critical illness myopathy; I46.2 Cardiac arrest due to underlying cardiac condition; E11.65 Type 2 diabetes mellitus with hyperglycemia; I45.10 Unspecified right bundle-branch block; E78.00 Pure hypercholesterolemia, unspecified; E78.5 Hyperlipidemia, unspecified; N18.31 Chronic kidney disease, stage 3a; G25.0 Essential tremor; I25.10 Atherosclerotic heart disease of native coronary artery without angina pectoris; X58.XXXA Exposure to other specified factors, initial encounter; D72.829 Elevated white blood cell count, unspecified; Z79.84 Long term (current) use of oral hypoglycemic drugs; Z79.899 Other long term (current) drug therapy; Z85.46 Personal history of malignant neoplasm of prostate; Z87.891 Personal history of nicotine dependence; Z88.8 Allergy status to other drugs, medicaments and biological substances; I25.5 Ischemic cardiomyopathy; I48.0 Paroxysmal atrial fibrillation; E83.51 Hypocalcemia; I95.9 Hypotension, unspecified; I48.3 Typical atrial flutter; F41.9 Anxiety disorder, unspecified; E87.5 Hyperkalemia; D64.9 Anemia, unspecified; D69.6 Thrombocytopenia, unspecified; R13.10 Dysphagia, unspecified; Z68.21 Body mass index [BMI] 21.0-21.9, adult
CPT/HCPCS: 36415; 36416; 36430; 71045; 71275; 74018; 74230; 80048; 80053; 80061; 80076; 80202; 82306; 82553; 82805; 83036; 83605; 83735; 83880; 84443; 84484; 85007; 85025; 85027; 85347; 85379; 85610; 85730; 86140; 86850; 86900; 86901; 87040; 87324; 87449; 93005; 93010; 93306; 93458; 93459; 93798; 93970; 94660; 94760; 96365; 97139; C1776; J0171; J0282; J0360; J0690; J1100; J1160; J1644; J1650; J1815; J1885; J1940; J2001; J2060; J2150; J2250; J2260; J2270; J2405; J2440; J2543; J2704; J2720; J2920; J2930; J3010; J3370; J3475; J3480; J3490; J7030; J7050; J7070; J7120; J7512; J8540; P9016; P9045; Q9963; Q9967; S0017; S0020; S0028; U0002; U0003; U0005